=== PATIENT | female | born 1970 | race Caucasian/White ===

== ENCOUNTER 2020-12-26 07:16 | Outpatient (REF) | payer OTHER, SELFPAY ==
[2020-12-26 08:04] LABS: MANUAL DIFF FLAG NO
[2020-12-26 08:06] LABS: Basophils Absolute Auto 0.1 X10*3/uL (0.0-0.2); Basophils Percent Auto 1.1 % (0-2); Eosinophils Absolute Auto 0.4 X10*3/uL (0.0-0.4); Eosinophils Percent Auto 5.5 % (0-4); Hemoglobin 13.6 g/dl (12.0-16.0); Imm Gran Abs Auto 0.02 X10*3/uL (0.00-0.03); Imm Gran Pct Auto 0.3 % (0.0-0.4); Lymphocytes Percent Auto 26.3 % (20-40); Mean Corpuscular HGB Conc 33.2 g/dl (31.0-35.0); Mean Corpuscular Hemoglobin 29.2 pg (27.0-33.0); Mean Corpuscular Volume 88.2 fL (80-98); Mean Platelet Volume 9.5 fL (9.4-12.3); Monocytes Absolute Auto 0.5 X10*3/uL (0.1-1.2); Monocytes Percent Auto 7.1 % (2-11); Neutrophils Absolute Auto 4.5 X10*3/uL (2.0-8.3); Neutrophils Percent Auto 59.7 % (45-73); Platelet Count 390 X10*3/uL (160-400); Red Blood Count 4.65 X10*6/uL (4.20-5.50); Red Cell Distribution Width 13.2 % (11.0-16.0); White Blood Count 7.6 X10*3/uL (4.8-10.8)
[2020-12-26 08:59] LABS: Alanine Aminotransferase 7 U/L (0-31); Albumin Level 4.4 g/dL (3.5-5.0); Alkaline Phosphatase 87 U/L (39-117); Anion Gap 11 (12-20); Aspartate Amino Transferase 11 U/L (5-31); Bilirubin Total 0.5 mg/dL (0.0-1.0); Blood Urea Nitrogen 9 mg/dL (9-16); Calcium 9.1 mg/dL (8.4-10.2); Carbon Dioxide 28 mmol/L (22-29); Chloride 102 mmol/L (96-108); Cholesterol 217 mg/dL; Estimated Glomerular Filt Rate > 60; Glucose Fasting 142 mg/dL (60-99); HDL Cholesterol 48 mg/dL; LDL Cholesterol Calculated 146 mg/dl; Potassium 4.4 mmol/l (3.3-5.1); Sodium 137 mmol/L (135-145); Total Protein 7.5 g/dL (6.5-8.0); Triglycerides 119 mg/dL
[2020-12-26 09:22] LABS: TSH reflex Free T4 0.82 mIU/mL (0.32-4.0)
[2020-12-26 09:34] LABS: Estimated Average Glucose 126 mg/dL
== END 2020-12-26 07:17 | disposition home or self-care (01) ==
LOC: HO.LAB 07:16
PROVIDERS: PCP Nurse Practitioner Family; Visit Provider Nurse Practitioner Family
DX: Z00.00 Encounter for general adult medical examination without abnormal findings (principal)
CPT/HCPCS: 36415; 80053; 80061; 83036; 84443; 85025

== ENCOUNTER 2021-12-11 13:44 | Emergency (ER) | payer OTHER, SELFPAY ==
--- NOTE | ~2021-12-11 | XR_ITS ---
EXAMINATION: XR CHEST CLINICAL INFORMATION: Chest pain, SOB. COMPARISON: Chest 10/13/2019 TECHNIQUE: 2 views of the chest were obtained. FINDINGS: No significant abnormality is noted involving the heart, lungs, mediastinum, bony thorax or soft tissues. XR/XR chest 2V IMPRESSION: Unremarkable chest examination.
--- NOTE | ~2021-12-11 | CT_ITS ---
EXAMINATION: CT HEAD WITHOUT CONTRAST CLINICAL INFORMATION: New onset headache. COMPARISON: CT head dated from 10/13/2019. TECHNIQUE: Contiguous axial imaging was performed from the skull base to vertex without intravenous administration of contrast. This CT examination was performed using dose optimization techniques as appropriate, variously including the following: *Automated exposure control *Adjustment of mA and/or kV according to patient size (this includes techniques or standardized protocols for targeted exams where dose is matched to indication/reason for exam; i.e. extremities or head) *Use of iterative reconstruction technique DLP: 578 mGy-cm FINDINGS: There is no evidence of acute intracranial hemorrhage or edematous territorial infarction. There is no abnormal attenuation within the brain parenchyma. Kevin-white matter differentiation is preserved. The ventricles are normal in size and configuration. No evidence for obstructive hydrocephalus. No abnormal mass effect or midline shift. No extra-axial fluid collections. No acute soft tissue or osseous abnormalities. The mastoid air cells and paranasal sinuses are clear. CT/CT head/brain wo con IMPRESSION: No evidence of acute intracranial hemorrhage or edematous territorial infarction.
--- NOTE | 2021-12-11 14:08 | ECG_ITS ---
Test Reason : chest pain/difficulty breathing Blood Pressure : / mmHG Vent. Rate : 085 BPM Atrial Rate : 085 BPM P-R Int : 126 ms QRS Dur : 114 ms QT Int : 356 ms P-R-T Axes : 061 -11 -20 degrees QTc Int : 423 ms Normal sinus rhythm Incomplete right bundle branch block ST & T wave abnormality, consider anterolateral ischemia Abnormal ECG When compared with ECG of 15-DEC-2019 08:26, Inverted T waves have replaced nonspecific T wave abnormality in Lateral leads Referred By: Generic ED Physician Electronically Signed By:SAMY MIRAMONTES
[2021-12-11 14:16] VITALS: BP 108/73; PULSE 89; RESP 89; TEMP 36.1; O2SAT 98; BMI 29.8
[2021-12-11 14:57] LABS: MANUAL DIFF FLAG NO
[2021-12-11 14:58] LABS: Basophils Absolute Auto 0.1 X10*3/uL (0.0-0.2); Basophils Percent Auto 0.7 % (0-2); Eosinophils Absolute Auto 0.1 X10*3/uL (0.0-0.4); Eosinophils Percent Auto 0.8 % (0-4); Hematocrit 40.2 % (37.0-47.0); Hemoglobin 13.7 g/dl (12.0-16.0); Imm Gran Abs Auto 0.05 X10*3/uL (0.00-0.03); Imm Gran Pct Auto 0.4 % (0.0-0.4); Lymphocytes Absolute Auto 2.1 X10*3/uL (1.2-4.9); Lymphocytes Percent Auto 17.8 % (20-40); Mean Corpuscular HGB Conc 34.1 g/dl (31.0-35.0); Mean Corpuscular Hemoglobin 29.5 pg (27.0-33.0); Mean Corpuscular Volume 86.5 fL (80.0-98.0); Mean Platelet Volume 9.8 fL (9.4-12.3); Monocytes Absolute Auto 0.7 X10*3/uL (0.1-1.2); Monocytes Percent Auto 6.2 % (2-11); Neutrophils Absolute Auto 8.7 x10*3/uL (2.0-8.3); Neutrophils Percent Auto 74.1 % (45-73); Platelet Count 467 X10*3/uL (160-400); Red Blood Count 4.65 X10*6/uL (4.20-5.50); Red Cell Distribution Width 13.3 % (11.0-16.0); White Blood Count 11.7 X10*3/uL (4.8-10.8)
[2021-12-11 15:10] LABS: Anion Gap 11 (12-20); Blood Urea Nitrogen 8 mg/dL (9-16); Calcium 9.7 mg/dL (8.4-10.2); Carbon Dioxide 27 mmol/L (22-29); Chloride 105 mmol/L (96-108); Creatinine Clr Calc Pharmacy 74.3; Estimated Glomerular Filt Rate > 60; Glucose Random 139 mg/dL (60-115); Potassium 4.2 mmol/L (3.3-5.1); Sodium 139 mmol/L (135-145)
[2021-12-11 15:17] LABS: Troponin-I High Sensitivity < 3.5 ng/L (<3.5-17.0)
[2021-12-11 17:02] LABS: COVID-19 Test Negative (Negative)
--- NOTE | 2021-12-11 18:23 | ED_ITS ---
HPI - General Adult General Chief complaint: General Medical Stated complaint: chest pain SOB migraine Time Seen by Provider: 12/11/21 18:23 Source: patient Mode of arrival: ambulatory Limitations: no limitations History of Present Illness HPI narrative: Patient with history of anxiety with history of headaches and migraines in the past was doing good for last 10 years since last night been having right-sided headache with light sensitivity and nausea also complaining of chest pain and shortness of breath was very anxious occasional cough no malaise no loss of taste sensation no fever no neck pain Related Data Home Medications Medication Instructions Recorded Confirmed benztropine 1 mg tablet 1 mg PO BID 11/13/20 04/16/21 olanzapine 10 mg tablet (Zyprexa) 10 mg PO DAILY 11/13/20 04/16/21 olanzapine 15 mg tablet (Zyprexa) 15 mg PO QPM 11/13/20 04/16/21 trazodone 300 mg tablet 300 mg PO BEDTIME 11/13/20 04/16/21 valacyclovir 500 mg tablet 500 mg PO BEDTIME tab 11/13/20 04/16/21 (Valtrex) clonazepam 1 mg tablet 1 mg PO BID 04/16/21 04/16/21 Previous Rx's Medication Instructions Recorded cyclobenzaprine 10 mg tablet 10 mg PO BEDTIME 30 Days #30 tab 11/13/20 albuterol sulfate 90 mcg/actuation 1 inh INHALATION QID PRN 30 Days 12/15/20 aerosol inhaler (Ventolin HFA) #6.7 g omeprazole 20 mg capsule,delayed 20 mg PO DAILY 60 Days #60 cap 01/03/21 release acetaminophen 650 mg 650 mg PO Q12H PRN #30 tab 01/23/21 tablet,extended release (Mapap Arthritis Pain) nxdcinzdbj-ztuzkmmulnems-nrdowuas 1 cap PO Q6H PRN #20 cap 12/11/21 50 mg-300 mg-40 mg capsule (Fioricet) Allergies Allergy/AdvReac Type Severity Reaction Status Date / Time prochlorperazine Allergy Severe ANAPHYLAXIS Verified 04/16/21 12:10 [From Compazine] Sulfa (Sulfonamide Allergy Severe ANAPHYLAXIS Verified 04/16/21 12:10 Antibiotics) [Sulfa (Sulfonamides)] lithium [Macclenny] Allergy Intermediate DIZZINESS,Balance Verified 04/16/21 12:10 problems azithromycin [From Zithromax] Allergy Unknown gi upset Verified 04/16/21 12:10 lurasidone [From LATUDA] Allergy Unknown AUDITORY Verified 04/16/21 12:10 AND VISUAL HALLUCINATIONS, SUICIDAL From Paxil Allergy Severe DIFFICULTY Uncoded 08/16/20 14:50 BREATHING,TONGUE SWOLLEN From Prozac Allergy Intermediate PANIC Uncoded 08/16/20 14:50 ATTACK HAYFEVER Allergy Intermediate sinus Uncoded 08/16/20 14:50 congestion Review of Systems Review of Systems: Yes all other systems are reviewed and are negative [facility] Past Medical History Medical History Bipolar disorder Dyslipidemia Knee pain, bilateral Pre-diabetes Vitamin D deficiency Surgical History History of appendectomy History of bunionectomy History of cervical spinal surgery History of section History of cholecystectomy History of surgery History of tonsillectomy Family History Family History Father Diabetes Bipolar 1 disorder Paternal Grandfather Myocardial infarction Paternal Uncle Myocardial infarction Social History Social History Patient Tobacco Use Status: Never used Tobacco Smoked in Last 30 Days: No Use of substances other than those prescribed or required for medical reasons: Yes Substance Use Type: Marijuana Advance Directives: No Advance Directives Information Provided: No Patient : No Physical Exam Vital Signs: Vital Signs: Last Vital Signs Temp 97.7 F 12/11/21 19:16 Pulse 73 12/11/21 19:57 Resp 16 12/11/21 19:57 BP 112/82 12/11/21 19:57 Pulse Ox 96 12/11/21 19:16 BMI result Body Mass Index 29.8 Appearance: Alert. Oriented X3. No acute distress. Eyes: PERRLA, No Nystagmus ENT: Pharynx normal. Oral Mucosa moist ,no temporal artery tenderness no carotid bruit Neck: Normal inspection. Neck supple. CVS: Normal heart rate and rhythm. Pulses normal. Respiratory: No respiratory distress. Equal air entry bilateral, no wheezing/rales/rhonchi Abdomen: Soft and nontender. Bowel sounds are present, no mass palpable, Skin: Skin warm and dry. Normal skin color. Normal skin turgor. Extremities: No lower extremity edema. No calf tenderness Neuro: Oriented X 3. No motor deficit. No sensory deficit.No cerebellar signs , cranial nerves II-XII intact Medical Decision Making MDM Narrative Medical decision making narrative: Patient headache with anxiety COVID negative sed rate not significantly high, head CT is negative discharge patient home Lab Data Lab results reviewed: Yes I reviewed the patient's lab results. Result diagrams: 12/11/21 14:52 12/11/21 14:51 Labs: Lab Results 12/11/21 12/11/21 12/11/21 Range/Units 14:51 14:51 14:52 WBC 11.7 H (4.8-10.8) X10*3/uL RBC 4.65 (4.20-5.50) X10*6/uL Hgb 13.7 (12.0-16.0) g/dl Hct 40.2 (37.0-47.0) % MCV 86.5 (80.0-98.0) fL MCH 29.5 (27.0-33.0) pg MCHC 34.1 (31.0-35.0) g/dl RDW 13.3 (11.0-16.0) % Plt Count 467 H (160-400) X10*3/uL MPV 9.8 (9.4-12.3) fL Immature Gran % (Auto) 0.4 (0.0-0.4) % Neut % (Auto) 74.1 H (45-73) % Lymph % (Auto) 17.8 L (20-40) % [place] % (Auto) 6.2 (2-11) % Eos % (Auto) 0.8 (0-4) % Baso % (Auto) 0.7 (0-2) % Lymph # (Auto) 2.1 (1.2-4.9) X10*3/uL [place] # (Auto) 0.7 (0.1-1.2) X10*3/uL Eos # (Auto) 0.1 (0.0-0.4) X10*3/uL Baso # (Auto) 0.1 (0.0-0.2) X10*3/uL Abs Immat Gran (auto) 0.05 H (0.00-0.03) X10*3/uL Absolute Neuts (auto) 8.7 H (2.0-8.3) x10*3/uL Absolute Nucleated RBC 0.000 (0.0-0.012) X10*3/uL Nucleated RBC % (auto) 0.0 (0.0-0.2) /100WBC ESR (0-20) MM/HR Sodium 139 (135-145) mmol/L Potassium 4.2 (3.3-5.1) mmol/L Chloride 105 (96-108) mmol/L Carbon Dioxide 27 (22-29) mmol/L Anion Gap 11 L (12-20) BUN 8 L (9-16) mg/dL Creatinine 0.82 (0.5-1.4) mg/dL Estim Creat Clear Calc 74.3 Estimated GFR > 60 Random Glucose 139 H (60-115) mg/dL Calcium 9.7 D (8.4-10.2) mg/dL Troponin I High Sens < 3.5 (<3.5-17.0) ng/L COVID-19 (JOSE CRUZ) (Negative) COVID-19 Clin Com 12/11/21 12/11/21 Range/Units 14:52 16:15 WBC (4.8-10.8) X10*3/uL RBC (4.20-5.50) X10*6/uL Hgb (12.0-16.0) g/dl Hct (37.0-47.0) % MCV (80.0-98.0) fL MCH (27.0-33.0) pg MCHC (31.0-35.0) g/dl RDW (11.0-16.0) % Plt Count (160-400) X10*3/uL MPV (9.4-12.3) fL Immature Gran % (Auto) (0.0-0.4) % Neut % (Auto) (45-73) % Lymph % (Auto) (20-40) % [place] % (Auto) (2-11) % Eos % (Auto) (0-4) % Baso % (Auto) (0-2) % Lymph # (Auto) (1.2-4.9) X10*3/uL [place] # (Auto) (0.1-1.2) X10*3/uL Eos # (Auto) (0.0-0.4) X10*3/uL Baso # (Auto) (0.0-0.2) X10*3/uL Abs Immat Gran (auto) (0.00-0.03) X10*3/uL Absolute Neuts (auto) (2.0-8.3) x10*3/uL Absolute Nucleated RBC (0.0-0.012) X10*3/uL Nucleated RBC % (auto) (0.0-0.2) /100WBC ESR 22 H (0-20) MM/HR Sodium (135-145) mmol/L Potassium (3.3-5.1) mmol/L Chloride (96-108) mmol/L Carbon Dioxide (22-29) mmol/L Anion Gap (12-20) BUN (9-16) mg/dL Creatinine (0.5-1.4) mg/dL Estim Creat Clear Calc Estimated GFR Random Glucose (60-115) mg/dL Calcium (8.4-10.2) mg/dL Troponin I High Sens (<3.5-17.0) ng/L COVID-19 (JOSE CRUZ) Negative (Negative) COVID-19 Clin Com See Note Discharge Plan Discharge Clinical Impression: Headache, migraine Patient Disposition: Home, Self-Care Instructions: Migraine Headache (ED) Additional Instructions: Rest at home Fioricet for headache as prescribed Follow-up with PCP if not better Prescriptions: New jkgshjtgdc-vbdtsaibepmih-vdax [Fioricet] 50-300-40 mg capsule 1 cap PO Q6H PRN (Reason: headache) Qty: 20 RF: 0 No Action albuterol sulfate [Ventolin HFA] 90 mcg/actuation HFA aerosol inhaler 1 inh inhalation QID PRN (Reason: shortness of breath or wheezing) 30 Days Qty: 6.7 RF: 0 omeprazole 20 mg capsule,delayed release(DR/EC) 20 mg PO DAILY 60 Days Qty: 60 RF: 0 acetaminophen [Mapap Arthritis Pain] 650 mg tablet extended release 650 mg PO Q12H PRN (Reason: for pain) Qty: 30 RF: 0 clonazepam 1 mg tablet 1 mg PO BID RF: 0 olanzapine [Zyprexa] 10 mg tablet 10 mg PO DAILY RF: 0 benztropine 1 mg tablet 1 mg PO BID RF: 0 olanzapine [Zyprexa] 15 mg tablet 15 mg PO QPM RF: 0 trazodone 300 mg tablet 300 mg PO BEDTIME RF: 0 valacyclovir [Valtrex] 500 mg tablet 500 mg PO BEDTIME RF: 0 cyclobenzaprine 10 mg tablet 10 mg PO BEDTIME 30 Days Qty: 30 RF: 0 Interventions: ED Discharge Assessment Last Done: 12/11/21 20:05 Discharge Date/Time: 12/11/21 20:05
[2021-12-11 18:32] VITALS: BP 121/73; PULSE 89; RESP 24; TEMP 36.6
[2021-12-11] MEDS: Morphine Sulfate 4 MG/ML CARTRIDGE IVPUSH (18:46)
[2021-12-11] MEDS: ondansetron HCL 4 MG/2 ML VIAL IVPUSH (18:47)
[2021-12-11 19:16] VITALS: BP 112/82; PULSE 75; RESP 16; TEMP 36.5; O2SAT 96
[2021-12-11 19:40] LABS: Erythrocyte Sedimentation Rate 22 MM/HR (0-20)
[2021-12-11 19:57] VITALS: BP 112/82; PULSE 73; RESP 16
--- NOTE | 2021-12-11 20:06 | PC.NURSE ---
pt is alert and oriented x3 no distress, steady giat.
== END 2021-12-11 20:05 | disposition home or self-care (01) ==
PROVIDERS: Emergency Provider Internal Medicine; PCP Internal Medicine
DX: G43.909 Migraine, unspecified, not intractable, without status migrainosus (principal); Z20.822 Contact with and (suspected) exposure to COVID-19; F41.9 Anxiety disorder, unspecified; E78.5 Hyperlipidemia, unspecified; R73.03 Prediabetes; F12.90 Cannabis use, unspecified, uncomplicated
CPT/HCPCS: 36415; 70450; 71046; 80048; 84484; 85025; 85652; 87635; 93005; 96374; 96375; 99284; J2270; J2405

== ENCOUNTER 2022-04-18 06:50 | Outpatient (REF) | payer OTHER, SELFPAY ==
[2022-04-18 07:13] LABS: MANUAL DIFF FLAG NO
[2022-04-18 07:43] LABS: Basophils Absolute Auto 0.1 X10*3/uL (0.0-0.2); Basophils Percent Auto 0.7 % (0-2); Eosinophils Absolute Auto 0.6 X10*3/uL (0.0-0.4); Eosinophils Percent Auto 5.7 % (0-4); Hemoglobin 12.7 g/dl (12.0-16.0); Imm Gran Abs Auto 0.05 X10*3/uL (0.00-0.03); Imm Gran Pct Auto 0.5 % (0.0-0.4); Lymphocytes Absolute Auto 1.9 X10*3/uL (1.2-4.9); Lymphocytes Percent Auto 19.7 % (20-40); Mean Corpuscular HGB Conc 33.4 g/dl (31.0-35.0); Mean Corpuscular Hemoglobin 29.1 pg (27.0-33.0); Mean Platelet Volume 10.3 fL (9.4-12.3); Monocytes Absolute Auto 0.7 X10*3/uL (0.1-1.2); Monocytes Percent Auto 7.3 % (2-11); Neutrophils Absolute Auto 6.4 x10*3/uL (2.0-8.3); Neutrophils Percent Auto 66.1 % (45-73); Platelet Count 405 X10*3/uL (160-400); Red Blood Count 4.37 X10*6/uL (4.20-5.50); Red Cell Distribution Width 13.6 % (11.0-16.0); White Blood Count 9.7 X10*3/uL (4.8-10.8)
[2022-04-18 07:55] LABS: Estimated Average Glucose 137 mg/dL; Hemoglobin A1c % 6.4 %
[2022-04-18 08:02] LABS: Anion Gap 12 (12-20); Blood Urea Nitrogen 8 mg/dL (9-16); Carbon Dioxide 29 mmol/L (22-29); Chloride 103 mmol/L (96-108); Cholesterol 183 mg/dL; Estimated Glomerular Filt Rate > 60; Glucose Fasting 153 mg/dL (60-99); HDL Cholesterol 40 mg/dL; LDL Cholesterol Calculated 107 mg/dl; Potassium 4.7 mmol/L (3.3-5.1); Sodium 139 mmol/L (135-145); Triglycerides 182 mg/dL
[2022-04-18 08:24] LABS: Free T4 (Free Thyroxine) 0.84 ng/dL (0.71-1.85); Thyroid Stimulating Hormone 1.39 uIU/mL (0.32-4.0)
== END 2022-04-18 06:51 | disposition home or self-care (01) ==
LOC: HO.LAB 06:50
PROVIDERS: PCP Internal Medicine; Visit Provider Clinical Nurse Specialist Psychiatric/Mental Health, Child & Adolescent
DX: F31.31 Bipolar disorder, current episode depressed, mild (principal); Z79.899 Other long term (current) drug therapy
CPT/HCPCS: 36415; 80048; 80061; 83036; 84439; 84443; 85025

== ENCOUNTER 2022-10-22 10:55 | Outpatient (REF) | payer OTHER, SELFPAY ==
--- NOTE | ~2022-10-22 | MM_ITS ---
EXAMINATION: MM SCREENING DIGITAL BREAST TOMOSYNTHESIS, BILATERAL CLINICAL INFORMATION: Screening. Asymptomatic. The lifetime risk of breast cancer based on the Tyrer-Cuzick Model is 6%. COMPARISON: Outside mammography: 10/02/2014, 08/09/2013, 02/13/2012 ([facility]) TECHNIQUE: Digital breast tomosynthesis is performed in both the craniocaudal and mediolateral oblique views along with computer-aided detection (CAD). Synthesized 2D images are generated from the tomosynthesis. FINDINGS: The breasts are heterogeneously dense, which may obscure small masses (ACR BI-RADS breast composition Category c). Breast tissue composition borders on average fibroglandular. Left breast shows no significant mass or architectural abnormality. No abnormal calcifications either breast. The axilla and skin contours are unremarkable. Right breast has a oval focal nodular asymmetry anterior lower inner quadrant approximately 5 x 8 mm, new finding from remote outside mammography exams. Patient will be recalled for additional imaging. MM/MM tomosynthesis screening BI IMPRESSION: Right: -Oval focal nodular asymmetry anterior lower inner quadrant under 1 cm. Left: -No mammographic evidence of malignancy. ASSESSMENT: BI-RADS 0: Incomplete - Need Additional Imaging Evaluation RECOMMENDATION: 1. Additional views of the right breast (spot CC, spot ML). 2. Targeted ultrasound if warranted after review of the additional views. 3. Radiology department staff will contact the patient for additional imaging. This patient's information was entered into a reminder system with a target due date for their next mammogram.
== END 2022-10-22 10:56 | disposition home or self-care (01) ==
LOC: HO.MAMMO 10:55
PROVIDERS: PCP Internal Medicine; Visit Provider Internal Medicine
DX: Z12.31 Encounter for screening mammogram for malignant neoplasm of breast (principal)
CPT/HCPCS: 77063; 77067

== ENCOUNTER 2022-11-10 12:31 | Outpatient (REF) | payer OTHER, SELFPAY ==
--- NOTE | ~2022-11-10 | US_ITS ---
EXAMINATION: MM DIAGNOSTIC DIGITAL BREAST TOMOSYNTHESIS, RIGHT US DIAGNOSTIC ULTRASOUND BREAST, RIGHT CLINICAL INFORMATION: Recall from screening for focal nodular asymmetric density anterior lower inner right breast, new from prior remote outside mammography 2013. COMPARISON: Mammography: 10/22/2022 and outside mammography 10/02/2014 ([facility]). TECHNIQUE: Digital breast tomosynthesis is performed. 2D images are generated from the tomosynthesis. The following views are obtained: Spot CC, spot ML x2. Ultrasound right breast is targeted to the anterior medial breast. Grayscale imaging and color Doppler are performed without and with harmonics. FINDINGS: The breasts are heterogeneously dense, which may obscure small masses (ACR BI-RADS breast composition Category c). Breast tissue composition borders on average fibroglandular. The nodule anterior medial breast appears smooth macrolobulated. No architectural abnormality. Finding is new from remote outside mammography 2013. Ultrasound demonstrates grouped microcysts in the area of interest 3:00 position 2 cm from nipple with overall size approximately 0.6 x 0.5 cm. There is no solid mass or architectural abnormality. Results are discussed with the patient at time of visit. The finding on mammography likely corresponds to benign grouped microcysts on ultrasound. As a precaution, short interval follow-up right mammography and ultrasound are recommended. US/US breast RT limited IMPRESSION: -Probable benign grouped microcysts anterior medial right breast corresponding to the macrolobulated nodule on mammography. ASSESSMENT: BI-RADS 3: Probably Benign RECOMMENDATION: Diagnostic right mammography and right breast ultrasound in 6 months. This patient's information was entered into a reminder system with a target due date for their next mammogram.
== END 2022-11-10 12:32 | disposition home or self-care (01) ==
LOC: HO.MAMMO 12:31
PROVIDERS: PCP Internal Medicine; Visit Provider Internal Medicine
DX: N64.89 Other specified disorders of breast (principal)
CPT/HCPCS: 76642; 77061; 77065

== ENCOUNTER 2022-12-30 10:01 | Outpatient (REF) | payer OTHER, SELFPAY ==
[2023-01-01 00:39] LABS: HPV mRNA E6/E7 rflx Not Detected (Not Detected)
== END 2022-12-30 10:02 | disposition home or self-care (01) ==
LOC: HO.LNP 10:01
PROVIDERS: PCP Internal Medicine; Visit Provider Advanced Practice Midwife
DX: Z01.419 Encounter for gynecological examination (general) (routine) without abnormal findings (principal); Z11.51 Encounter for screening for human papillomavirus (HPV)
CPT/HCPCS: 87624; 88142

== ENCOUNTER 2023-03-13 12:10 | Outpatient (REF) | payer OTHER, SELFPAY ==
--- NOTE | ~2023-03-13 | XR_ITS ---
EXAMINATION: XR FOOT, LEFT CLINICAL INFORMATION: Pain COMPARISON: None available. TECHNIQUE: AP, lateral, and oblique views of the left foot. FINDINGS: No acute fracture or dislocation. Joint spaces are maintained. Soft tissues are unremarkable. No joint effusion. Plantar calcaneal spurring. XR/XR foot LT min 3V IMPRESSION: Plantar calcaneal spurring.
== END 2023-03-13 12:11 | disposition home or self-care (01) ==
LOC: HO.HMGCX 12:10
PROVIDERS: PCP Internal Medicine; Visit Provider Internal Medicine
DX: M79.672 Pain in left foot (principal)
CPT/HCPCS: 73630

== ENCOUNTER → 2023-05-05 12:51 | Outpatient (BNVA) | payer OTHER, SELFPAY | PROVIDERS: PCP Internal Medicine; Visit Provider Nurse Practitioner Family | DX: G47.19 Other hypersomnia (principal); R06.83 Snoring; R06.81 Apnea, not elsewhere classified; M62.838 Other muscle spasm | CPT/HCPCS: 99202 ==

== ENCOUNTER 2023-05-26 10:43 | Outpatient (REF) | payer OTHER, SELFPAY ==
--- NOTE | ~2023-05-26 | MM_ITS ---
EXAMINATION: MM DIAGNOSTIC DIGITAL BREAST TOMOSYNTHESIS, RIGHT CLINICAL INFORMATION: Probable benign focal nodular asymmetry anterior lower inner right breast likely related to benign grouped microcysts on prior targeted ultrasound. Short interval six-month follow-up. TC score 6%. COMPARISON: Mammography: 11/10/2022, 10/22/2022 (BI-RADS 0), outside mammography 10/02/2014 ([facility]), right breast ultrasound 11/10/2022. TECHNIQUE: Digital breast tomosynthesis is performed in both the craniocaudal and mediolateral oblique views along with computer-aided detection (CAD). Synthesized 2D images are generated from the tomosynthesis. FINDINGS: The breasts are heterogeneously dense, which may obscure small masses (ACR BI-RADS breast composition Category c). Parenchymal pattern is similar to the prior exam. The nodularity for follow-up is stable to borderline decreased. There is no architectural abnormality. No interval developing density or significant mass or architectural abnormality. No abnormal calcifications. The axilla is unremarkable. Results are provided to the patient at time of visit by the technologist. The targeted right breast ultrasound for follow-up to be performed at another upcoming appointment. MM/MM tomosynthesis diagnostic RT IMPRESSION: -No significant changes from prior exam. -Nodule for follow-up is stable to borderline decreased. ASSESSMENT: BI-RADS 0: Incomplete - Need Additional Imaging Evaluation RECOMMENDATION: Short interval follow-up targeted right breast ultrasound (scheduled at another upcoming appointment). This patient's information was entered into a reminder system with a target due date for their next mammogram.
== END 2023-05-26 10:44 | disposition home or self-care (01) ==
LOC: HO.MAMMO 10:43
PROVIDERS: PCP Internal Medicine; Visit Provider Internal Medicine
DX: N64.89 Other specified disorders of breast (principal)
CPT/HCPCS: 77061; 77065

== ENCOUNTER 2023-05-26 11:35 | Outpatient (REF) | payer OTHER, SELFPAY | END 2023-05-26 11:36 | disposition home or self-care (01) | LOC: HO.XRAY 11:35 | PROVIDERS: PCP Internal Medicine; Visit Provider Internal Medicine | DX: Z13.89 Encounter for screening for other disorder (principal) ==

== ENCOUNTER 2023-06-09 09:22 | Outpatient (REF) | payer OTHER, SELFPAY ==
--- NOTE | ~2023-06-09 | XR_ITS ---
EXAMINATION: XR FOOT, LEFT CLINICAL INFORMATION: Pain COMPARISON: 03/13/2023 TECHNIQUE: AP, lateral, and oblique views of the left foot. FINDINGS: Bones are normal anatomic alignment with no acute fracture or spondylolisthesis. Small calcaneal heel spur is again seen at the attachment point of the plantar aponeurosis. No acute bony destructive lesions or periosteal reaction. Soft tissue unremarkable. XR/XR foot LT min 3V IMPRESSION: No acute bony abnormality. Small calcaneal heel spur.
== END 2023-06-09 09:23 | disposition home or self-care (01) ==
LOC: HO.XRAY 09:22
PROVIDERS: PCP Internal Medicine; Visit Provider Internal Medicine
DX: M79.672 Pain in left foot (principal)
CPT/HCPCS: 73630

== ENCOUNTER → 2023-06-11 12:30 | Outpatient (REF) | payer OTHER, SELFPAY | LOC: HO.SL 12:30 | PROVIDERS: PCP Internal Medicine; Visit Provider Nurse Practitioner Family | DX: G47.33 Obstructive sleep apnea (adult) (pediatric) (principal); R06.83 Snoring; G47.19 Other hypersomnia | CPT/HCPCS: 95806 ==

== ENCOUNTER → 2023-06-11 13:05 | Outpatient (BNV) | payer OTHER, SELFPAY | PROVIDERS: PCP Internal Medicine; Visit Provider Psychiatry & Neurology Neurology | DX: G47.33 Obstructive sleep apnea (adult) (pediatric) (principal) | CPT/HCPCS: 95806 ==

== ENCOUNTER → 2023-07-14 19:30 | Outpatient (REF) | payer OTHER, SELFPAY | LOC: HO.SL 19:30 | PROVIDERS: PCP Internal Medicine; Visit Provider Nurse Practitioner Family | DX: G47.33 Obstructive sleep apnea (adult) (pediatric) (principal) | CPT/HCPCS: 95811 ==

== ENCOUNTER → 2023-07-14 21:48 | Outpatient (BNV) | payer OTHER, SELFPAY | PROVIDERS: PCP Internal Medicine; Visit Provider Psychiatry & Neurology Neurology | DX: G47.33 Obstructive sleep apnea (adult) (pediatric) (principal) | CPT/HCPCS: 95811 ==

== ENCOUNTER 2023-07-20 13:51 | Outpatient (REF) | payer OTHER, SELFPAY ==
--- NOTE | ~2023-07-20 | US_ITS ---
EXAMINATION: US DIAGNOSTIC ULTRASOUND BREAST, RIGHT CLINICAL INFORMATION: Patient returning for 6 month follow-up to mammography finding 05/26/2023, of complicated cyst right breast 3:00 axis, 2 cm from the nipple. COMPARISON: Right breast ultrasound 11/10/2022. Mammography 05/26/2023, 11/10/2022, and dating back to 2012. TECHNIQUE: Ultrasound of the right breast was performed in the 3:00 axis with real-time kinney scale imaging and color Doppler. FINDINGS: There is a stable complicated cyst in the right breast 3:00 axis, 2 cm from the nipple, measuring approximately 5 x 5 x 5 mm, unchanged in overall morphology and size. This finding remains probably benign. No additional abnormality is detected. Results were discussed with the patient at time of visit. US/US breast RT limited mamm only IMPRESSION: Stable complicated cyst in the 3:00 axis of the right breast, which remains probably benign. Recommend six-month interval follow-up targeted right breast ultrasound to ensure stability. Goal is to establish a two-year stability. ASSESSMENT: BI-RADS 3: Probably Benign RECOMMENDATION: Diagnostic right ultrasound in 6 months. This patient's information was entered into a reminder system with a target due date for their next mammogram.
== END 2023-07-20 13:52 | disposition home or self-care (01) ==
LOC: HO.MAMMO 13:51
PROVIDERS: PCP Internal Medicine; Visit Provider Internal Medicine
DX: N63.15 Unspecified lump in the right breast, overlapping quadrants (principal)
CPT/HCPCS: 76642

== ENCOUNTER → 2023-07-20 14:00 | Outpatient (BNV) | payer OTHER, SELFPAY | PROVIDERS: PCP Internal Medicine; Visit Provider Radiology Diagnostic Radiology | DX: N60.01 Solitary cyst of right breast (principal) | CPT/HCPCS: 76642 ==

== ENCOUNTER 2023-09-08 08:53 | Outpatient (AMB) | payer OTHER, SELFPAY ==
[2023-09-08 09:06] VITALS: BP 106/72; PULSE 65; O2SAT 97; BMI 31.9
--- NOTE | 2023-09-08 09:06 | A.OFFVIS_ITS ---
Intake Vital Signs 09/08/23 09:06 Height 5 ft 1 in Weight 169 lb BMI 31.9 BP 106/72 Blood Pressure Location Lt brachial Position Sitting Pulse 65 Pulse Source Pulse Oximeter Pulse Oximetry (%) 97 Oxygen Delivery Method Room Air Intake Visit Reasons: 2 mnts f/u for sleep-Confirmed Intake Note: Patient presents for 2 month follow up. Patient states no concerns. Allergies prochlorperazine [From Compazine] Allergy (Severe, Verified 09/08/23 09:08) ANAPHYLAXIS Sulfa (Sulfonamide Antibiotics) [Sulfa (Sulfonamides)] Allergy (Severe, Verified 09/08/23 09:08) ANAPHYLAXIS lithium [[place]] Allergy (Intermediate, Verified 09/08/23 09:08) DIZZINESS,Balance problems azithromycin [From Zithromax] Allergy (Unknown, Verified 09/08/23 09:08) gi upset lurasidone [From LATUDA] Allergy (Unknown, Verified 09/08/23 09:08) AUDITORY AND VISUAL HALLUCINATIONS, SUICIDAL From Paxil Allergy (Severe, Uncoded 09/08/23 09:08) DIFFICULTY BREATHING,TONGUE SWOLLEN From Prozac Allergy (Intermediate, Uncoded 09/08/23 09:08) PANIC ATTACK HAYFEVER Allergy (Intermediate, Uncoded 09/08/23 09:08) sinus congestion HPI HPI Comments History of Present Illness Details 53 y/o female patient presents for follo w up of sleep study. The home sleep study result was significant for a severe degree of sleep apnea. The AHI was 47/hr and oxygen kyler was 77%. Pt underwent titration study and started CPAP at [id number]. Pt reports she changed to medium nasal cushion and she feels better with it. She sleeps better, 5-6 hrs sleep. She feels more awake has energy during daytime. She also cut down soda intake. The CPAP compliance and therapy response (08/09/23-09/07/23) reviewed. She is on CPAP at [id number]. The usage days 87% and the average usage hours 4 hrs 30 min. The AHI was 7.5/hr. [facility] Medical History (Updated 06/18/23 @ 15:13 by Sintia Macario CNP) Calcaneal spur of left foot Pain of left heel Witnessed apneic spells Loud snoring Excessive daytime sleepiness Dyslipidemia Vitamin D deficiency Bipolar disorder Pre-diabetes Knee pain, bilateral Surgical History History of surgery History of cervical spinal surgery History of cholecystectomy History of tonsillectomy History of bunionectomy History of appendectomy History of section Family History Father Diabetes Bipolar 1 disorder Paternal Grandfather Myocardial infarction Substance use disorder Paternal Uncle Myocardial infarction Mental health disorder Paternal Grandmother Substance use disorder Maternal Uncle Substance use disorder Paternal Aunt Mental health disorder Social History Housing: Condominium Patient Tobacco Use Status: Never used Tobacco e-Cigarette/Vaping Use: Never Used Substance Use Type: Marijuana service: No Current occupational status: disabled Cognitive needs: No Hearing needs: No Vision needs: Yes Female Reproductive History Menstrual Age of Menarche: 17 Review of Systems Const All systems reviewed & are unremarkable except as noted in HPI and below ENT Reports Normal hearing present Neuro Reports Normal hearing present Physical Exam Vital Signs: Last Vital Signs Pulse 65 09/08/23 09:06 BP 106/72 09/08/23 09:06 Pulse Ox 97 09/08/23 09:06 Oxygen Delivery Method Room Air 09/08/23 09:06 BMI result Body Mass Index 31.9 Const General: cooperative Nutritional Appearance: obese Orientation/consciousness: patient oriented x3 Neck Neck: Yes full ROM and Yes supple Resp Effort & Inspection: normal respiratory effort and able to speak in complete sentences Neuro General: patient oriented x3, gait normal and moves all extremities Cranial nerves: Yes Normal facial strength present, Yes Midline tongue present, Yes Symmetric palate elevation present, Yes Normal hearing present, Yes Ability to bilaterally rotate head present and Yes Ability to bilaterally elevate shoulders present Cognition (Neuro): normal cognition Gait exam (Neuro): Normal gait present Motor exam (neuro): 5/5 motor strength present throughout, Pronator motor function not present and no tremor noted Psych Appearance: grossly normal Mental Status: mental status grossly normal Speech and movement: Normal speech and movement present Affect: normal affect Attitude: cooperative Assessment & Plan Assessment & Plan (1) Sleep apnea: Comment: Severe degree of sleep apnea. The AHI was 47/hr and oxygen kyler was 77% Code(s): G47.30 - Sleep apnea, unspecified Plan Continue to use CPAP at [id number] as patient experiences good clinical effects, better quality sleep and daytime sleepiness has improved. Continue to take magnesium qHS and practice good sleep hygiene. Wt reduction advised. Coding Level of Care Code Est Pt Level 3 (06323) Diagnoses Sleep apnea G47.30
== END 2023-09-08 09:33 | disposition home or self-care (01) ==
PROVIDERS: PCP Internal Medicine; Visit Provider Nurse Practitioner Family
DX: G47.30 Sleep apnea, unspecified (principal)
CPT/HCPCS: 99213

== ENCOUNTER → 2023-09-08 08:53 | Outpatient (BNVA) | payer OTHER, SELFPAY | PROVIDERS: PCP Internal Medicine; Visit Provider Nurse Practitioner Family | DX: G47.30 Sleep apnea, unspecified (principal) | CPT/HCPCS: 99212 ==

== ENCOUNTER 2024-02-18 09:53 | Outpatient (AMB) | payer OTHER, SELFPAY ==
--- NOTE | 2024-02-18 10:20 | MHC.PC.OV ---
Vital Signs 02/18/24 10:26 Height 5 ft 1 in Weight 161 lb BMI 30.4 BP 92/60 Blood Pressure Location Lt brachial Position Sitting Pulse 98 Pulse Source Pulse Oximeter Pulse Oximetry (%) 97 Oxygen Delivery Method Room Air Intake Visit Reasons: Back & neck pain, needs xrays Intake Note: Pt is here today c/o lower back and and neck pain: Pt states she had neck surgery 30 yrs ago but recently her neck and back been botherin her Allergies prochlorperazine [From Compazine] Allergy (Severe, Verified 02/18/24 10:50) ANAPHYLAXIS Sulfa (Sulfonamide Antibiotics) [Sulfa (Sulfonamides)] Allergy (Severe, Verified 02/18/24 10:50) ANAPHYLAXIS lithium [[place]] Allergy (Intermediate, Verified 02/18/24 10:50) DIZZINESS,Balance problems azithromycin [From Zithromax] Allergy (Unknown, Verified 02/18/24 10:50) gi upset lurasidone [From LATUDA] Allergy (Unknown, Verified 02/18/24 10:50) AUDITORY AND VISUAL HALLUCINATIONS, SUICIDAL From Paxil Allergy (Severe, Uncoded 02/18/24 10:50) DIFFICULTY BREATHING,TONGUE SWOLLEN From Prozac Allergy (Intermediate, Uncoded 02/18/24 10:50) PANIC ATTACK HAYFEVER Allergy (Intermediate, Uncoded 02/18/24 10:50) sinus congestion Medication List - Last Reconciled 02/18/24 by Hannah Vidal MD albuterol sulfate 90 mcg/actuation (Ventolin HFA) 1 inh inhalation QID PRN 30 days clonazepam 1 mg PO BID olanzapine (Zyprexa) 10 mg PO DAILY olanzapine (Zyprexa) 15 mg PO QPM trazodone 300 mg PO PRN valacyclovir (Valtrex) 500 mg PO DAILY 90 days Tobacco use date assessed: 02/18/24 Dental Screening Dental Screen Date: 02/18/24 Did you have a dental visit in the last 12 months?: Yes Did you have a dental problem in the last 6 months where you did not have access to dental care?: No Was dental information given to patient?: Patient has dentist HPI Back & neck pain, needs xrays HPI Details 53-year-old lady here today complaining of lower back and and neck pain. She had cervical spine surgery done in [place] approximately 25-30 years ago , seen by Dr Jack. Was doing well until 6 months ago, when she fell down the stairs approximately 12 steps, and started experiencing pain in her posterior neck with radiation down right arm, and tingling in right finger, and lower back radiating to both hips for the last 4 months. Denies any urinary or stool incontinence, but does get intermittent episodes of tingling and pain numbness in right upper extremity and both [facility] Medical History (Updated 02/18/24 @ 10:59 by Hannah Vidal MD) Lumbago Calcaneal spur of left foot Pain of left heel Witnessed apneic spells Loud snoring Excessive daytime sleepiness Dyslipidemia Vitamin D deficiency Bipolar disorder Pre-diabetes Knee pain, bilateral Surgical History (Updated 02/18/24 @ 10:59 by Hannah Vidal MD) History of surgery History of cervical spinal surgery History of cholecystectomy History of tonsillectomy History of bunionectomy History of appendectomy History of section Family History Father Diabetes Bipolar 1 disorder Paternal Grandfather Myocardial infarction Substance use disorder Paternal Uncle Myocardial infarction Mental health disorder Paternal Grandmother Substance use disorder Maternal Uncle Substance use disorder Paternal Aunt Mental health disorder Social History Housing: Condominium Patient Tobacco Use Status: Former Tobacco user e-Cigarette/Vaping Use: Never Used Substance Use Type: Marijuana service: No Current occupational status: disabled Cognitive needs: No Hearing needs: No Vision needs: Yes Female Reproductive History Menstrual Age of Menarche: 17 Questionnaire PHQ-9 Over the last 2 weeks, how often have you been bothered by any of the following problems? 1. Little interest or pleasure in doing things: not at all 2. Feeling down, depressed, or hopeless: not at all 3. Trouble falling or staying asleep, or sleeping too much: several days 4. Feeling tired or having little energy: several days 5. Poor appetite or overeating: not at all 6. Feeling bad about yourself - or that you are a failure or have let yourself or your family down: not at all 7. Trouble concentrating on things, such as reading the newspaper or watching television: not at all 8. Moving or speaking so slowly that other people could have noticed. Or the opposite - being so fidgety or restless that you have been moving around a lot more than usual: not at all 9. Thoughts that you would be better off or of hurting yourself in some way: not at all Total score: 2 Depression Screening Interpretation: Negative Depression Screening Done: Yes 69386 - PHQ-9 Billing: Yes Source: Developed by Drs. Dane Renner, Romina Dumont, Hudson Flower and colleagues, with an educational isidro from [employer]. Thrive Questionnaire Date Thrive assessed: 02/18/24 I am a: Patient What is your living situation today?: I have a steady place to live Within the past 12 months, did the food you bought not last and you didn't have the money to get more?: Never true Within the past 12 months, did you worry whether your food would run out before you got money to buy more?: Never true Do you have trouble paying for medicines?: No Do you have trouble getting transportation to medical appointments?: No Do you have trouble paying your heating and electricity bill?: No Do you have trouble taking care of your child, family member or friend?: No Do you have trouble with day-to-day activities such as bathing, preparing meals, shopping, managing finances, etc.?: No Are you currently unemployed and looking for a job?: No Are you interested in more education?: No THRIVE Score: 0 AUDIT C Alcohol Use Questionnaire (AUDIT-C) 1. How often do you have a drink containing alcohol?: Never Total Score: 0 MELA-7 AMB Questionnaire MELA-7 Date MELA - 7 assessed: 02/18/24 Feeling nervous, anxious, or on edge: 1 = Several days Not being able to stop or control worryin = Several days Worrying too much about different things: 1 = Several days Trouble relaxin = Not at all Being so restless that it is hard to sit still: 0 = Not at all Becoming easily annoyed or irritable: 1 = Several days Feeling afraid as if something awful might happen: 0 = Not at all Total MELA-7 score (0-4 normal; 5-9 mild; 10-14 moderate; 15-21 severe): 4 Source: Developed by Drs. Dane Renner, Romina Dumont, Hudson Flower and colleagues, with an educational isidro from [employer]. MELA-7 Assessment Billing MELA-7 Assessment Tool: MELA-7 Assessment 84098 Review of Systems Const Reports as per HPI Physical exam (Primary Care) Vital Signs: Last Vital Signs Pulse 98 02/18/24 10:26 BP 92/60 02/18/24 10:26 Pulse Ox 97 02/18/24 10:26 Oxygen Delivery Method Room Air 02/18/24 10:26 BMI result Body Mass Index 30.4 Tobacco/Smoking Status: Tobacco use Status Tobacco use date assessed 02/18/24 02/18/24 10:35 Patient Tobacco Use Status Former Tobacco user 02/18/24 10:35 e-Cigarette/Vaping Use Never Used 02/18/24 10:21 PHQ-9: PHQ-9 Score PHQ-9: Total score 4 02/18/24 10:52 Depression Screening Interpretation: Negative Thrive Assessment: Date of Thrive Assessment Date Thrive assessed 02/18/24 02/18/24 10:35 Const Other: Alert oriented x3, ambulatory with normal gait Orientation/consciousness: patient oriented x3 HENMT Head: Yes normocephalic and Yes atraumatic Ears: hearing grossly normal bilaterally, external ears normal and TM's normal bilaterally General nose exam: Normal external nose present Face and sinus: Yes face symmetric Mouth: Normal oral and palatal mucosa present, oropharynx normal and moist mucous membranes Eyes General: appearance normal, both eyes and all related structures Neck Other: Slight tenderness on palpation over both trapezius muscle Neck: Yes full ROM, Yes no lymphadenopathy and Yes supple Resp Auscultation: clear to auscultation bilaterally Cardio Other: S1-S2 present regular rate and rhythm Skin General skin exam: no rashes or lesions noted Neuro General: patient oriented x3, tone normal, moves all extremities and no focal motor deficits Assessment and Plan Assessment & Plan (1) Lumbago: Code(s): M54.50 - Low back pain, unspecified (2) History of cervical spinal surgery: Comment: surgery in c-spine x 3 due to disc herniations done at [facility] - Dr Pantoja, Dr Susie Feliciano Code(s): Z98.890 - Other specified postprocedural states (3) Cervicalgia: Code(s): M54.2 - Cervicalgia Plan X-ray of both lumbar spine and cervical spine ordered, patient states that she is going to be scheduling an appointment with Dr. eFliciano for further evaluation management after x-rays are done. Advised to take Tylenol 650 mg per tablet 1-2 tablets every 12 hours as needed for pain. Apply either Salonpas patch with lidocaine or warm compress to affected area Orders: Orders XR cervical spine w flex/ext 02/18/24 M54.2 - Cervicalgia, M54.50 - Low back pain, unspecified, Z98.890 - Other specified postprocedural states XR lumbar spine 6V w bending 02/18/24 M54.2 - Cervicalgia, M54.50 - Low back pain, unspecified, Z98.890 - Other specified postprocedural states Coding Level of Care Code Est Pt Level 3 (96255) Diagnoses Lumbago M54.50 History of cervical spinal surgery Z98.890 Cervicalgia M54.2 Additional Codes MELA-7 Assessment Billing - MELA-7 Assessment Tool: MELA-7 Assessment [id number] ([id number])
[2024-02-18 10:26] VITALS: BP 92/60; PULSE 98; O2SAT 97; BMI 30.4
== END 2024-02-18 12:02 | disposition home or self-care (01) ==
PROVIDERS: PCP Internal Medicine; Visit Provider Internal Medicine
DX: M54.50 Low back pain, unspecified (principal); Z98.890 Other specified postprocedural states; M54.2 Cervicalgia
CPT/HCPCS: 99213

== ENCOUNTER 2024-02-26 10:05 | Outpatient (REF) | payer OTHER, SELFPAY ==
--- NOTE | ~2024-02-26 | XR_ITS ---
EXAMINATION: XR CERVICAL SPINE CLINICAL INFORMATION: Cervicalgia. COMPARISON: CT cervical spine dated 10/13/2019; cervical spine radiographs dated 10/31/2014. TECHNIQUE: 4 views of the cervical spine, inclusive of flexion and extension views, were obtained. FINDINGS: Vertebral body heights and alignment are normal. There has been a prior fusion extending from C4 through C7, with intact anterior fixator plate and fixator screws at C6-C7. No hardware failure or loosening is seen. There is no instability with flexion or extension. The posterior elements are intact. The dens is intact. The prevertebral soft tissues are unremarkable. XR/XR lumbar spine 4V min IMPRESSION: There has been a prior fusion extending from C4 through C7. No hardware failure or loosening is seen. There is no instability with flexion or extension. EXAMINATION: XR LUMBOSACRAL SPINE CLINICAL INFORMATION: Lower back pain. COMPARISON: Lumbar spine radiographs dated 02/18/2007. TECHNIQUE: AP, bilateral oblique and lateral views of the lumbar spine and lateral view of the lumbosacral junction. FINDINGS: Vertebral body heights and alignment are normal. At L5-S1, there is moderately severe disc space narrowing. The remaining disc spaces are relatively well-maintained. No acute fracture or spondylolisthesis is seen. There is multi-level lower thoracic and lumbar endplate arthropathy and Schmorl's node formation. The posterior elements are intact. No spondylolysis defect is seen on the oblique views. The paravertebral soft tissues are unremarkable. Tubal ligation clips are noted. There are multiple pelvic phleboliths. There are right upper quadrant surgical clips. IMPRESSION: 1. There is moderately severe degenerative disc disease at L5-S1. 2. There is multi-level lower thoracic and lumbar endplate arthropathy.
--- NOTE | ~2024-02-26 | XR_ITS ---
EXAMINATION: XR CERVICAL SPINE CLINICAL INFORMATION: Cervicalgia. COMPARISON: CT cervical spine dated 10/13/2019; cervical spine radiographs dated 10/31/2014. TECHNIQUE: 4 views of the cervical spine, inclusive of flexion and extension views, were obtained. FINDINGS: Vertebral body heights and alignment are normal. There has been a prior fusion extending from C4 through C7, with intact anterior fixator plate and fixator screws at C6-C7. No hardware failure or loosening is seen. There is no instability with flexion or extension. The posterior elements are intact. The dens is intact. The prevertebral soft tissues are unremarkable. XR/XR cervical spine w flex/ext IMPRESSION: There has been a prior fusion extending from C4 through C7. No hardware failure or loosening is seen. There is no instability with flexion or extension. EXAMINATION: XR LUMBOSACRAL SPINE CLINICAL INFORMATION: Lower back pain. COMPARISON: Lumbar spine radiographs dated 02/18/2007. TECHNIQUE: AP, bilateral oblique and lateral views of the lumbar spine and lateral view of the lumbosacral junction. FINDINGS: Vertebral body heights and alignment are normal. At L5-S1, there is moderately severe disc space narrowing. The remaining disc spaces are relatively well-maintained. No acute fracture or spondylolisthesis is seen. There is multi-level lower thoracic and lumbar endplate arthropathy and Schmorl's node formation. The posterior elements are intact. No spondylolysis defect is seen on the oblique views. The paravertebral soft tissues are unremarkable. Tubal ligation clips are noted. There are multiple pelvic phleboliths. There are right upper quadrant surgical clips. IMPRESSION: 1. There is moderately severe degenerative disc disease at L5-S1. 2. There is multi-level lower thoracic and lumbar endplate arthropathy.
== END 2024-02-26 10:06 | disposition home or self-care (01) ==
LOC: HO.HMGCX 10:05
PROVIDERS: PCP Internal Medicine; Visit Provider Internal Medicine
DX: M54.2 Cervicalgia (principal); M54.50 Low back pain, unspecified; Z98.890 Other specified postprocedural states
CPT/HCPCS: 72052; 72110

== ENCOUNTER 2024-03-10 13:39 | Outpatient (AMB) | payer OTHER, SELFPAY ==
--- NOTE | 2024-03-10 13:44 | MHC.OFFVIS ---
Intake Vital Signs 03/10/24 13:49 Height 5 ft 1 in Weight 162 lb 4 oz BMI 30.7 BP 104/70 Blood Pressure Location Lt brachial Position Sitting Pulse 66 Pulse Source Pulse Oximeter Pulse Oximetry (%) 95 Oxygen Delivery Method Room Air Intake Visit Reasons: 6 mo f/u -Sleep - CONF w/address Intake Note: Patient presents for 6 months F/U. Allergies prochlorperazine [From Compazine] Allergy (Severe, Verified 03/10/24 13:49) ANAPHYLAXIS Sulfa (Sulfonamide Antibiotics) [Sulfa (Sulfonamides)] Allergy (Severe, Verified 03/10/24 13:49) ANAPHYLAXIS lithium [[place]] Allergy (Intermediate, Verified 03/10/24 13:49) DIZZINESS,Balance problems azithromycin [From Zithromax] Allergy (Unknown, Verified 03/10/24 13:49) gi upset lurasidone [From LATUDA] Allergy (Unknown, Verified 03/10/24 13:49) AUDITORY AND VISUAL HALLUCINATIONS, SUICIDAL From Paxil Allergy (Severe, Uncoded 02/18/24 10:50) DIFFICULTY BREATHING,TONGUE SWOLLEN From Prozac Allergy (Intermediate, Uncoded 02/18/24 10:50) PANIC ATTACK HAYFEVER Allergy (Intermediate, Uncoded 02/18/24 10:50) sinus congestion HPI HPI Comments History of Present Illness Details 53 y/o female patient presents for follow up of JESSICA on CPAP. The home sleep study result was significant for a severe degree of sleep apnea. The AHI was 47/hr and oxygen kyler was 77%. Pt underwent titration study and started CPAP at [id number]. Pt reports she changed to medium nasal cushion and she feels better with it. She sleeps better, 5-6 hrs sleep. She feels more awake has energy during daytime. She also cut down soda intake. The CPAP compliance and therapy response (12/09/23-03/07/24) reviewed. She is on CPAP at [id number]. The usage days 99% and the average usage hours 4 hrs 38 min. The AHI was 8.2/hr. The apnea index was central 0.2 and the obstructive 4.5, unknown 2.3. [facility] Medical History (Updated 02/18/24 @ 10:59 by Hannah Vidal MD) Lumbago Calcaneal spur of left foot Pain of left heel Witnessed apneic spells Loud snoring Excessive daytime sleepiness Dyslipidemia Vitamin D deficiency Bipolar disorder Pre-diabetes Knee pain, bilateral Surgical History History of surgery History of cervical spinal surgery History of cholecystectomy History of tonsillectomy History of bunionectomy History of appendectomy History of section Family History Father Diabetes Bipolar 1 disorder Paternal Grandfather Myocardial infarction Substance use disorder Paternal Uncle Myocardial infarction Mental health disorder Paternal Grandmother Substance use disorder Maternal Uncle Substance use disorder Paternal Aunt Mental health disorder Social History Housing: Condominium Patient Tobacco Use Status: Former Tobacco user e-Cigarette/Vaping Use: Never Used Substance Use Type: Marijuana service: No Current occupational status: disabled Cognitive needs: No Hearing needs: No Vision needs: Yes Female Reproductive History Menstrual Age of Menarche: 17 Review of Systems Const All systems reviewed & are unremarkable except as noted in HPI and below ENT Reports Normal hearing present Neuro Reports Normal hearing present Physical Exam Vital Signs: BMI result Body Mass Index 30.7 Const General: cooperative Nutritional Appearance: obese Orientation/consciousness: patient oriented x3 Neck Neck: Yes full ROM and Yes supple Resp Effort & Inspection: normal respiratory effort and able to speak in complete sentences Neuro General: patient oriented x3, gait normal and moves all extremities Cranial nerves: Yes Normal facial strength present, Yes Midline tongue present, Yes Symmetric palate elevation present, Yes Normal hearing present, Yes Ability to bilaterally rotate head present and Yes Ability to bilaterally elevate shoulders present Cognition (Neuro): normal cognition Gait exam (Neuro): Normal gait present Motor exam (neuro): 5/5 motor strength present throughout, Pronator motor function not present and no tremor noted Psych Appearance: grossly normal Mental Status: mental status grossly normal Speech and movement: Normal speech and movement present Affect: normal affect Attitude: cooperative Assessment & Plan Assessment & Plan (1) Sleep apnea: Comment: Severe degree of sleep apnea. The AHI was 47/hr and oxygen kyler was 77% Code(s): G47.30 - Sleep apnea, unspecified Plan Advised patient to try CPAP at [id number]. Continue to use CPAP as patient experiences good clinical effects, better quality sleep and daytime sleepiness has improved. Stressed compliance, use CPAP nightly and more than 4 hrs. Continue to take magnesium qHS and practice good sleep hygiene. Wt reduction advised. Coding Level of Care Code Est Pt Level 3 (81936) Diagnoses Sleep apnea G47.30
[2024-03-10 13:49] VITALS: BP 104/70; PULSE 66; O2SAT 95; BMI 30.7
== END 2024-03-10 14:06 | disposition home or self-care (01) ==
PROVIDERS: PCP Internal Medicine; Visit Provider Nurse Practitioner Family
DX: G47.30 Sleep apnea, unspecified (principal)
CPT/HCPCS: 99213

== ENCOUNTER → 2024-03-10 13:39 | Outpatient (BNVA) | payer OTHER, SELFPAY | PROVIDERS: PCP Internal Medicine; Visit Provider Nurse Practitioner Family | DX: G47.30 Sleep apnea, unspecified (principal); Z99.89 Dependence on other enabling machines and devices | CPT/HCPCS: 99212 ==

== ENCOUNTER 2024-04-14 13:29 | Outpatient (REF) | payer OTHER, SELFPAY ==
--- NOTE | ~2024-04-14 | MM_ITS ---
EXAMINATION: MM DIAGNOSTIC DIGITAL BREAST TOMOSYNTHESIS, BILATERAL CLINICAL INFORMATION: 6 month follow-up for complicated cyst versus nodule right breast far anterior slightly medial 3:00 axis. Patient due for bilateral screening. COMPARISON: Mammography: 05/26/2023, 11/10/2022, 10/22/2022, and dating back to 2013. TECHNIQUE: Digital breast tomosynthesis is performed in both the craniocaudal and mediolateral oblique views along with computer-aided detection (CAD). Synthesized 2D images are generated from the tomosynthesis. FINDINGS: The breasts are heterogeneously dense, which may obscure small masses (ACR BI-RADS breast composition Category c). The previously seen bilobed nodule at 3:00 in the far anterior right breast has significantly decreased in size on today's examination, from 5 mm to approximately 2 mm in diameter. This strongly favors benignity, and no further follow-up recommended. Otherwise there are no suspicious masses, suspicious grouped calcifications, or areas of architectural distortion in either breast. The parenchymal pattern is stable from prior exams. MM/MM tomosynthesis diagnostic BI IMPRESSION: Small nodule at 3:00 axis significantly smaller, and benign. No further assessment required. Otherwise, no findings suspicious for malignancy in either breast. Recommend the patient return to routine annual screening. ASSESSMENT: BI-RADS BI-RADS 2 - Benign Findings RECOMMENDATION: 1 year F/U Results were provided to the patient at time of visit by the technologist. This patient's information was entered into a reminder system with a target due date for their next mammogram.
== END 2024-04-14 13:30 | disposition home or self-care (01) ==
LOC: HO.MAMMO 13:29
PROVIDERS: PCP Internal Medicine; Visit Provider Internal Medicine
DX: N63.15 Unspecified lump in the right breast, overlapping quadrants (principal)
CPT/HCPCS: 77062; 77066

== ENCOUNTER → 2024-04-14 14:00 | Outpatient (BNV) | payer OTHER, SELFPAY | PROVIDERS: PCP Internal Medicine; Visit Provider Radiology Diagnostic Radiology | DX: R92.8 Other abnormal and inconclusive findings on diagnostic imaging of breast (principal) | CPT/HCPCS: 77066; G0279 ==

== ENCOUNTER 2024-06-09 14:09 | Outpatient (AMB) | payer OTHER, SELFPAY ==
--- NOTE | 2024-06-09 14:13 | MHC.OFFVIS ---
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: Writer Technical Publications Present (Sho) Allergies prochlorperazine [From Compazine] Allergy (Severe, Verified 06/09/24 14:14) ANAPHYLAXIS Sulfa (Sulfonamide Antibiotics) [Sulfa (Sulfonamides)] Allergy (Severe, Verified 06/09/24 14:14) ANAPHYLAXIS lithium [[place]] Allergy (Intermediate, Verified 06/09/24 14:14) DIZZINESS,Balance problems azithromycin [From Zithromax] Allergy (Unknown, Verified 06/09/24 14:14) gi upset lurasidone [From LATUDA] Allergy (Unknown, Verified 06/09/24 14:14) AUDITORY AND VISUAL HALLUCINATIONS, SUICIDAL From Paxil Allergy (Severe, Uncoded 02/18/24 10:50) DIFFICULTY BREATHING,TONGUE SWOLLEN From Prozac Allergy (Intermediate, Uncoded 02/18/24 10:50) PANIC ATTACK HAYFEVER Allergy (Intermediate, Uncoded 02/18/24 10:50) sinus congestion HPI Comments Details: She 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 She is doing well with no concerns. Requesting a refill on her valacyclovir used daily. Attempting to eat a healthy diet with calcium and vitamin D and stays active with exercise. Currently sexually active. Denies any vaginal dryness or irritation. STI testing offered, declines testing. Last pap smear; 2022. Last mammogram; 2023. Plans the cologard. Denies any family history of breast, ovarian or colon cancer. [facility] Medical History Polyarthralgia Lumbago Calcaneal spur of left foot Pain of left heel Witnessed apneic spells Loud snoring Excessive daytime sleepiness Dyslipidemia Vitamin D deficiency Bipolar disorder Pre-diabetes Knee pain, bilateral Surgical History History of surgery History of cervical spinal surgery History of cholecystectomy History of tonsillectomy History of bunionectomy History of appendectomy History of section Family History Father Diabetes Bipolar 1 disorder Paternal Grandfather Myocardial infarction Substance use disorder Paternal Uncle Myocardial infarction Mental health disorder Paternal Grandmother Substance use disorder Maternal Uncle Substance use disorder Paternal Aunt Mental health disorder Social History (Updated 06/09/24 @ 14:18 by GE Workman) Housing: Condominium Patient Tobacco Use Status: Former Tobacco user e-Cigarette/Vaping Use: Never Used Substance Use Type: Marijuana service: No Current occupational status: disabled Cognitive needs: No Hearing needs: No Vision needs: Yes Female Reproductive History Menstrual Age of Menarche: 17 control method: permanent sterilization Permanent Sterilization: BTL Menopause type: surgical Total pregnancies: 1 Full term: 1 Number of Living Children: 1 Date of last pap smear: 12/30/22 (neg pap and hpv) History of abnormal pap smear: Yes (1995 ascus) Date of Mammogram: 04/14/24 (Birad 2) Review of Systems Const All systems reviewed & are unremarkable except as noted in HPI and below Reports as per HPI Eyes Reports no additional complaints ENT Reports no additional complaints Card Reports no additional complaints Resp Reports no additional complaints GI Reports as per HPI and Reports no additional complaints Reports as per HPI Musc Reports no additional complaints Skin/Breast Reports as per HPI Neuro Reports no additional complaints Psych Reports no additional complaints Endo Reports no additional complaints Daniel/Lymph Reports no additional complaints Aller/Immun Reports no additional complaints Physical Exam Vital Signs: Last Vital Signs BP 102/64 06/09/24 14:14 BMI result Body Mass Index 30.2 Const General: cooperative, healthy appearing, no acute distress, well developed and alert Orientation/consciousness: patient oriented x3 HEENT Head: Yes normal to inspection Eyes General: appearance normal, both eyes and all related structures Neck Neck: Yes normal visual inspection Thyroid: Thyroid normal Chest Chest palpation & inspection: normal inspection of the chest and other (no puckering, dimpling, peau de orange, retraction, discharge, masses) Breast/axilla inspection: normal inspection of the breasts Breast/axilla palpation: normal palpation of the breasts Resp Effort & Inspection: normal respiratory effort GI Inspection: Yes normal to inspection Palpation (GI): Soft to palpation Rectal Exam - Female: deferred General: Yes bladder normal to palpation External Female Exam: normal external appearance and normal appearance of the urethra Speculum Exam - Vagina: normal appearance of the vagina, normal palpation and normal vaginal discharge Speculum Exam - Cervix: normal appearance of the cervix and normal palpation Bimanual exam- vagina & uterus: normal bimanual exam, normal palpation, uterine size normal, bladder normal to palpation, normal palpation and non-tender Bimanual Exam- Adnexa, other: no masses Skin General skin exam: no rashes or lesions noted Rashes: no rashes Neuro General: patient oriented x3 Cognition (Neuro): normal cognition Extrem General: Yes normal to inspection Psych Attitude: cooperative Thought process: Normal thought process present Assessment & Plan Assessment & Plan (1) Encounter for well woman exam with routine gynecological exam: Code(s): Z01.419 - Encounter for gynecological examination (general) (routine) without abnormal findings Category: Medical Plan Discussed: Current recommendations for pap smears per ASCCP guidelines. Breast awareness, periodic self breast exams and yearly mammogram. Maintain a healthy lifestyle, well balanced diet including Calcium 1,200 mg and Vitamin D 600 IU daily, and routine exercise. Use of condoms for STI prevention if indicated. Contact the office with any postmenopausal bleeding. Patient verbalizes understanding and agrees to the plan of care. She was given opportunity to ask questions and all questions were answered to the best of my ability. RTO in 1 year for annual production manager exam. This note is constructed using voice recognition software. While every effort has been made to ensure accuracy, certified marine mechanic errors may have been included. Medications: Refilled valacyclovir (Valtrex) 500 mg PO DAILY 90 tabs 4RF 90 days Coding Level of Care Code Est Pt Prev Care 40-64y(09992) Diagnoses Encounter for well woman exam with routine gynecological exam Z01.419
[2024-06-09 14:14] VITALS: BP 102/64; BMI 30.2
== END 2024-06-09 14:43 | disposition home or self-care (01) ==
PROVIDERS: PCP Internal Medicine; Visit Provider Advanced Practice Midwife
DX: Z01.419 Encounter for gynecological examination (general) (routine) without abnormal findings (principal)
CPT/HCPCS: 99396

== ENCOUNTER → 2024-06-09 14:09 | Outpatient (BNVA) | payer OTHER, SELFPAY | PROVIDERS: PCP Internal Medicine; Visit Provider Advanced Practice Midwife ==

== ENCOUNTER 2024-06-14 09:18 | Outpatient (AMB) | payer OTHER, SELFPAY ==
--- NOTE | 2024-06-14 09:20 | A.OFFPC_ITS ---
Vital Signs 06/14/24 09:23 Height 5 ft 1 in Weight 157 lb BMI 29.7 BP 118/74 Blood Pressure Location Lt brachial Position Sitting Pulse 75 Pulse Source Pulse Oximeter Pulse Oximetry (%) 97 Oxygen Delivery Method Room Air Intake Visit Reasons: PE Intake Note: Pt is here for her annual PE. Mammogram 04/14/24. Pap 12/30/22. Colonoscopy declined Allergies prochlorperazine [From Compazine] Allergy (Severe, Verified 06/14/24 09:40) ANAPHYLAXIS Sulfa (Sulfonamide Antibiotics) [Sulfa (Sulfonamides)] Allergy (Severe, Verified 06/14/24 09:40) ANAPHYLAXIS lithium [[place]] Allergy (Intermediate, Verified 06/14/24 09:40) DIZZINESS,Balance problems azithromycin [From Zithromax] Allergy (Unknown, Verified 06/14/24 09:40) gi upset lurasidone [From LATUDA] Allergy (Unknown, Verified 06/14/24 09:40) AUDITORY AND VISUAL HALLUCINATIONS, SUICIDAL From Paxil Allergy (Severe, Uncoded 06/14/24 09:40) DIFFICULTY BREATHING,TONGUE SWOLLEN From Prozac Allergy (Intermediate, Uncoded 06/14/24 09:40) PANIC ATTACK HAYFEVER Allergy (Intermediate, Uncoded 06/14/24 09:40) sinus congestion Medication List - Last Reconciled 06/14/24 by Hannah Vidal MD albuterol sulfate 90 mcg/actuation (Ventolin HFA) 1 inh inhalation QID PRN 30 days clonazepam 1 mg PO BID olanzapine (Zyprexa) 10 mg PO DAILY olanzapine (Zyprexa) 15 mg PO QPM trazodone 300 mg PO PRN valacyclovir (Valtrex) 500 mg PO DAILY 90 days Tobacco use date assessed: 06/14/24 Dental Screening Dental Screen Date: 06/14/24 Did you have a dental visit in the last 12 months?: Yes Did you have a dental problem in the last 6 months where you did not have access to dental care?: No Was dental information given to patient?: Patient has dentist HPI PE HPI0 Details 53 year old Lady here today for physical exam. She is up-to-date with her screening mammogram, last done 04/14/2024, and is up-to-date with her cervi niyah cancer screening with last Pap done 12/30/2022 . She has never had a colonoscopy, declined procedure. She is currently being seen by psychiatry, Yonis Beth, and being treated for bipolar disorder. She has chronic cervical pain, with cervical spondylosis , with history of 3 spinal surgery, and has lumbar spondylosis, currently being followed by Dr. Susie Nuñez at [facility], and has been referred for physical therapy. [facility] Medical History (Updated 06/20/24 @ 01:30 by Hannah Vidal MD) Lumbar spondylosis Cervical spondylosis Polyarthralgia Lumbago Calcaneal spur of left foot Pain of left heel Witnessed apneic spells Loud snoring Excessive daytime sleepiness Dyslipidemia Vitamin D deficiency Bipolar disorder Pre-diabetes Knee pain, bilateral Surgical History History of surgery History of cervical spinal surgery History of cholecystectomy History of tonsillectomy History of bunionectomy History of appendectomy History of section Family History Father Diabetes Bipolar 1 disorder Paternal Grandfather Myocardial infarction Substance use disorder Paternal Uncle Myocardial infarction Mental health disorder Paternal Grandmother Substance use disorder Maternal Uncle Substance use disorder Paternal Aunt Mental health disorder Social History Housing: Condominium Patient Tobacco Use Status: Former Tobacco user e-Cigarette/Vaping Use: Never Used Substance Use Type: Marijuana service: No Current occupational status: disabled Cognitive needs: No Hearing needs: No Vision needs: Yes Female Reproductive History Menstrual Age of Menarche: 17 Date of last pap smear: 12/30/22 Date of Mammogram: 04/14/24 Questionnaire PHQ-9 Over the last 2 weeks, how often have you been bothered by any of the following problems? 1. Little interest or pleasure in doing things: several days 2. Feeling down, depressed, or hopeless: several days 3. Trouble falling or staying asleep, or sleeping too much: several days 4. Feeling tired or having little energy: several days 5. Poor appetite or overeating: several days 6. Feeling bad about yourself - or that you are a failure or have let yourself or your family down: not at all 7. Trouble concentrating on things, such as reading the newspaper or watching television: several days 8. Moving or speaking so slowly that other people could have noticed. Or the opposite - being so fidgety or restless that you have been moving around a lot more than usual: not at all 9. Thoughts that you would be better off or of hurting yourself in some way: not at all Total score: 6 Depression Screening Interpretation: Positive (Currently being seen by Yonis Beth , treated for bipolar disorder) Depression Screening Follow-up: Existing condition and In treatment Depression Screening Done: Yes 60258 - PHQ-9 Billing: Yes Source: Developed by Drs. Dane Renner, Romina Dumnot, Hudson Flower and colleagues, with an educational isidro from [employer]. Thrive Questionnaire Date Thrive assessed: 06/14/24 I am a: Patient What is your living situation today?: I have a steady place to live Within the past 12 months, did the food you bought not last and you didn't have the money to get more?: Sometimes True Within the past 12 months, did you worry whether your food would run out before you got money to buy more?: Sometimes True Do you have trouble paying for medicines?: No Do you have trouble getting transportation to medical appointments?: Yes Do you have trouble paying your heating and electricity bill?: No Do you have trouble taking care of your child, family member or friend?: No Do you have trouble with day-to-day activities such as bathing, preparing meals, shopping, managing finances, etc.?: No Are you currently unemployed and looking for a job?: No Are you interested in more education?: No Please select the resources that you would like help with: Housing/Chcf Currently or been in a relationship where the following occur: I choose not to answer THRIVE Score: 3 AUDIT C Alcohol Use Questionnaire (AUDIT-C) 1. How often do you have a drink containing alcohol?: Never Total Score: 0 MELA-7 AMB Questionnaire MELA-7 Date MELA - 7 assessed: 06/14/24 Feeling nervous, anxious, or on edge: 1 = Several days Not being able to stop or control worryin = Several days Worrying too much about different things: 0 = Not at all Trouble relaxin = Several days Being so restless that it is hard to sit still: 1 = Several days Becoming easily annoyed or irritable: 1 = Several days Feeling afraid as if something awful might happen: 0 = Not at all Total MELA-7 score (0-4 normal; 5-9 mild; 10-14 moderate; 15-21 severe): 5 Source: Developed by Drs. Dane Renner, Romina Dumont, Hudson Flower and colleagues, with an educational isidro from [employer]. MELA-7 Assessment Billing MELA-7 Assessment Tool: MELA-7 Assessment 93629 Review of Systems Const All systems reviewed & are unremarkable except as noted in HPI and below Reports as per HPI Eyes Reports no additional complaints ENT Reports no additional complaints Card Reports no additional complaints Resp Reports no additional complaints GI Reports as per HPI and Reports no additional complaints Reports as per HPI Musc Reports no additional complaints Skin/Breast Denies breast pain, Denies breast mass and Denies rash Neuro Reports no additional complaints Psych Reports no additional complaints Endo Reports no additional complaints Daniel/Lymph Reports no additional complaints Aller/Immun Reports no additional complaints Physical exam (Primary Care) Vital Signs: Last Vital Signs Pulse 75 06/14/24 09:23 BP 118/74 06/14/24 09:23 Pulse Ox 97 06/14/24 09:23 Oxygen Delivery Method Room Air 06/14/24 09:23 BMI result Body Mass Index 29.7 Tobacco/Smoking Status: Tobacco use Status Tobacco use date assessed 06/14/24 06/14/24 09:24 Patient Tobacco Use Status Former Tobacco user 06/14/24 09:21 e-Cigarette/Vaping Use Never Used 06/14/24 09:21 PHQ-9: PHQ-9 Score PHQ-9: Total score 6 06/14/24 09:45 Depression Screening Interpretation: Positive (Currently being seen by Yonis Beth , treated for bipolar disorder) Depression Screening Follow-up: Existing condition and In treatment Thrive Assessment: Date of Thrive Assessment Date Thrive assessed 06/14/24 06/14/24 09:24 Currently or been in a relationship where the following occur: I choose not to answer Const Other: Alert oriented x3, ambulatory with normal gait Orientation/consciousness: patient oriented x3 HENMT Head: Yes normocephalic Ears: hearing grossly normal bilaterally, external ears normal and TM's normal bilaterally General nose exam: Normal external nose present Face and sinus: Yes face symmetric Mouth: Normal oral and palatal mucosa present, oropharynx normal and moist mucous membranes Eyes General: appearance normal, both eyes and all related structures Neck Neck: Yes full ROM, Yes no lymphadenopathy and Yes supple Chest Breast/axilla palpation: normal palpation of the breasts Resp Auscultation: clear to auscultation bilaterally Cardio Other: S1-S2 present regular rate and rhythm GI Palpation (GI): Soft to palpation, nontender, no guarding and no masses Back/Spine/Pelvis Other: Healed surgical scar over cervical spine, slight tenderness on palpation over trapezius, and SI joint, right more than the left, Skin General skin exam: no rashes or lesions noted Neuro General: patient oriented x3, gait normal, tone normal, moves all extremities, no focal motor deficits and deep tendon reflexes 2+ bilaterally Extrem General: Yes full ROM, Yes no joint enlargement, Yes no clubbing, cyanosis or edema and Yes normal gait Psych Appearance: grossly normal and well kempt Mental Status: mental status grossly normal Speech and movement: Normal speech and movement present Affect: normal affect Thought process: Normal thought process present Assessment and Plan Assessment & Plan (1) Annual visit for general adult medical examination with abnormal findings: Code(s): Z00.01 - Encounter for general adult medical examination with abnormal findings Plan: Will check appropriate labs. Advised to get dental visit every 6 months and regular eye exams, at least every 2 years. Take adequate calcium in diet and vitamin-D 3 at 2000 IU per cap once a day, in addition to weight-bearing exercises to help maintain good muscle tone and weight control. Instructed to do self-breast exam, and continue with yearly mammogram, currently up-to-date with her cervical cancer screening.. Up-to-date with her screening colonoscopy. Up-to-date with all her vaccinations (2) Pre-diabetes: Code(s): R73.03 - Prediabetes Plan: Your previous fasting blood sugars were elevated above 100 mg/dL. Impaired glucose metabolism increases the risk for developing diabetes mellitus type 2, as well as heart attack and stroke later on. Lifestyle changes that promotes weight loss, healthy eating habits, and regular exercise are important, and can prevent the progression to diabetes (3) Bipolar disorder: Comment: Followed by therapist and psychiatrist at [facility] Code(s): F31.9 - Bipolar disorder, unspecified Plan: Currently followed by psychiatry (4) Dyslipidemia: Code(s): E78.5 - Hyperlipidemia, unspecified Plan: Fasting lipid panel ordered, reinforced importance of following a low- cholesterol diet and getting regular exercise (5) Muscle spasm: Code(s): M62.838 - Other muscle spasm Plan: Prescription sent for tizanidine 4 mg per tablet to take 1 tablet at bedtime only as needed for painful muscle spasm patient has cervical and lumbar spondylosis currently being seen by Dr. Becker at [facility] , who has referred patient to undergo physical therapy (6) Sleep apnea: Comment: Severe degree of sleep apnea. The AHI was 47/hr and oxygen kyler was 77% Unable to tolerate CPAP or BiPAP Code(s): G47.30 - Sleep apnea, unspecified Plan: Patient unable to tolerate CPAP, states that symptoms are improving, Orders: Orders Basic Metabolic Panel Fasting 06/14/24 E55.9 - Vitamin D deficiency, unspecified, E78.5 - Hyperlipidemia, unspecified, F31.9 - Bipolar disorder, unspecified, G47.30 - Sleep apnea, unspecified, M62.838 - Other muscle spasm, R73.03 - Prediabetes, Z00.01 - Encounter for general adult medical examination with abnormal findings, Z71.89 - Other specified counseling Hemoglobin A1c 06/14/24 E55.9 - Vitamin D deficiency, unspecified, E78.5 - Hyperlipidemia, unspecified, F31.9 - Bipolar disorder, unspecified, G47.30 - Sleep apnea, unspecified, M62.838 - Other muscle spasm, R73.03 - Prediabetes, Z00.01 - Encounter for general adult medical examination with abnormal findings, Z71.89 - Other specified counseling Alanine Aminotransferase 06/14/24 E55.9 - Vitamin D deficiency, unspecified, E78.5 - Hyperlipidemia, unspecified, F31.9 - Bipolar disorder, unspecified, G47.30 - Sleep apnea, unspecified, M62.838 - Other muscle spasm, R73.03 - Prediabetes, Z00.01 - Encounter for general adult medical examination with abnormal findings, Z71.89 - Other specified counseling Aspartate Amino Transferase 06/14/24 E55.9 - Vitamin D deficiency, unspecified, E78.5 - Hyperlipidemia, unspecified, F31.9 - Bipolar disorder, unspecified, G47.30 - Sleep apnea, unspecified, M62.838 - Other muscle spasm, R73.03 - Prediabetes, Z00.01 - Encounter for general adult medical examination with abnormal findings, Z71.89 - Other specified counseling Lipid Panel 06/14/24 E55.9 - Vitamin D deficiency, unspecified, E78.5 - Hyperlipidemia, unspecified, F31.9 - Bipolar disorder, unspecified, G47.30 - Sleep apnea, unspecified, M62.838 - Other muscle spasm, R73.03 - Prediabetes, Z00.01 - Encounter for general adult medical examination with abnormal findings, Z71.89 - Other specified counseling Vitamin D 25-OH Total 06/14/24 E55.9 - Vitamin D deficiency, unspecified, E78.5 - Hyperlipidemia, unspecified, F31.9 - Bipolar disorder, unspecified, G47.30 - Sleep apnea, unspecified, M62.838 - Other muscle spasm, R73.03 - Prediabetes, Z00.01 - Encounter for general adult medical examination with abnormal findings, Z71.89 - Other specified counseling Medications: New tizanidine 4 mg PO BEDTIME PRN 14 tabs 0RF muscle spasticity Refilled albuterol sulfate 90 mcg/actuation (Ventolin HFA) 1 inh inhalation QID 30 days PRN 8.5 grams 1RF shortness of breath or wheezing Coding Level of Care Code Est Pt Prev Care 40-64y(78850) Diagnoses Annual visit for general adult medical examination with abnormal findings Z00.01 Pre-diabetes R73.03 Bipolar disorder F31.9 Dyslipidemia E78.5 Muscle spasm M62.838 Sleep apnea G47.30 Additional Codes MELA-7 Assessment Billing - MELA-7 Assessment Tool: MELA-7 Assessment 93803 ([id number])
[2024-06-14 09:23] VITALS: BP 118/74; PULSE 75; O2SAT 97; BMI 29.7
== END 2024-06-14 10:03 | disposition home or self-care (01) ==
PROVIDERS: PCP Internal Medicine; Visit Provider Internal Medicine
DX: Z00.00 Encounter for general adult medical examination without abnormal findings (principal); R73.03 Prediabetes; F31.9 Bipolar disorder, unspecified; E78.5 Hyperlipidemia, unspecified; M62.838 Other muscle spasm; G47.30 Sleep apnea, unspecified
CPT/HCPCS: 99396

== ENCOUNTER 2024-07-08 10:03 | Outpatient (REF) | payer OTHER, SELFPAY ==
[2024-07-08 13:43] LABS: Alanine Aminotransferase 16 U/L (0-31); Anion Gap 9 (12-20); Aspartate Amino Transferase 13 U/L (5-31); Blood Urea Nitrogen 7 mg/dL (9-16); Calcium 8.7 mg/dL (8.4-10.2); Carbon Dioxide 25 mmol/L (22-29); Chloride 107 mmol/L (96-108); Cholesterol 183 mg/dL (<200); Estimated Glomerular Filt Rate > 60; Glucose Fasting 137 mg/dL (60-99); HDL Cholesterol 46 mg/dL (>40); LDL Cholesterol Calculated 121 mg/dL (<100); Potassium 4.4 mmol/L (3.3-5.1); Sodium 137 mmol/L (135-145); Triglycerides 81 mg/dL (<150)
[2024-07-08 13:46] LABS: Vitamin D 25-OH Total 34.5 ng/mL (>30)
[2024-07-08 13:56] LABS: Estimated Average Glucose 131 mg/dL; Hemoglobin A1c % 6.2 % (<6.0)
== END 2024-07-08 10:04 | disposition home or self-care (01) ==
LOC: HO.HMGCLDS 10:03
PROVIDERS: PCP Internal Medicine; Visit Provider Internal Medicine
DX: Z00.01 Encounter for general adult medical examination with abnormal findings (principal); Z71.89 Other specified counseling; M62.838 Other muscle spasm; F31.9 Bipolar disorder, unspecified; R73.03 Prediabetes; E78.5 Hyperlipidemia, unspecified; G47.30 Sleep apnea, unspecified; E55.9 Vitamin D deficiency, unspecified
CPT/HCPCS: 36415; 80048; 80061; 82306; 83036; 84450; 84460

== ENCOUNTER 2025-05-05 14:43 | Outpatient (REF) | payer OTHER, SELFPAY ==
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
== END 2025-05-05 14:44 | disposition home or self-care (01) ==
LOC: HO.MAMMO 14:43
PROVIDERS: PCP Internal Medicine; Visit Provider Internal Medicine
DX: Z12.31 Encounter for screening mammogram for malignant neoplasm of breast (principal)
CPT/HCPCS: 77063; 77067

== ENCOUNTER → 2025-05-05 15:00 | Outpatient (BNV) | payer OTHER, SELFPAY | PROVIDERS: PCP Internal Medicine; Visit Provider Internal Medicine | DX: Z12.31 Encounter for screening mammogram for malignant neoplasm of breast (principal) | CPT/HCPCS: 77063; 77067 ==

== ENCOUNTER 2025-06-13 12:34 | Outpatient (AMB) | payer OTHER, SELFPAY ==
--- NOTE | 2025-06-13 12:35 | MHC.OFFVIS ---
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 Soybean Grower: Soybean Grower Present (alejandro) Accompanied by: Self / Same As Patient Allergies prochlorperazine (From Compazine) Allergy (Severe, Verified 06/13/25 12:42) ANAPHYLAXIS Sulfa (Sulfonamide Antibiotics) (Sulfa (Sulfonamides)) Allergy (Severe, Verified 06/13/25 12:42) ANAPHYLAXIS lithium ([place]) Allergy (Intermediate, Verified 06/13/25 12:42) DIZZINESS,Balance problems azithromycin (From Zithromax) Allergy (Unknown, Verified 06/13/25 12:42) gi upset lurasidone (From LATUDA) Allergy (Unknown, Verified 06/13/25 12:42) AUDITORY AND VISUAL HALLUCINATIONS, SUICIDAL From Paxil Allergy (Severe, Uncoded 06/14/24 09:40) DIFFICULTY BREATHING,TONGUE SWOLLEN From Prozac Allergy (Intermediate, Uncoded 06/14/24 09:40) PANIC ATTACK HAYFEVER Allergy (Intermediate, Uncoded 06/14/24 09:40) sinus congestion Is last menstrual period known: No Post menopausal: Yes Patient : No HPI Comments Details: Patient is a 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 She is doing well with no hand bindery assembly worker concerns. Needs refill on Valcyclovir, unable to stop due to symptoms onset, has tried a few times in the past. Currently not sexually active. STI testing offered; she declines. Attempting to eat a healthy diet with calcium and vitamin D and stays active with exercise. Last pap smear; 2022, negative. Last mammogram; 2024. Plans the Cologard. Denies any family history of breast, ovarian or colon cancer. [facility] Medical History Lumbar spondylosis Cervical spondylosis Polyarthralgia Lumbago Calcaneal spur of left foot Pain of left heel Witnessed apneic spells Loud snoring Excessive daytime sleepiness Dyslipidemia Vitamin D deficiency Bipolar disorder Pre-diabetes Knee pain, bilateral Surgical History History of surgery History of cervical spinal surgery History of cholecystectomy History of tonsillectomy History of bunionectomy History of appendectomy History of section Family History Father Diabetes Bipolar 1 disorder Paternal Grandfather Myocardial infarction Substance use disorder Paternal Uncle Myocardial infarction Mental health disorder Paternal Grandmother Substance use disorder Maternal Uncle Substance use disorder Paternal Aunt Mental health disorder Social History Housing: Condominium Patient Tobacco Use Status: Former Tobacco user e-Cigarette/Vaping Use: Never Used Substance Use Type: Marijuana service: No Current occupational status: disabled Cognitive needs: No Hearing needs: No Vision needs: Yes Female Reproductive History Menstrual Age of Menarche: 17 control method: permanent sterilization Total pregnancies: 1 Full term: 1 Date of last pap smear: 12/30/22 (negative pap smear, negative hpv ) History of abnormal pap smear: Yes (1995 ascus) Date of Mammogram: 05/05/25 (bi rad 2) Review of Systems Const All systems reviewed & are unremarkable except as noted in HPI and below Reports as per HPI Eyes Reports no additional complaints ENT Reports no additional complaints Card Reports no additional complaints Resp Reports no additional complaints GI Reports as per HPI and Reports no additional complaints Reports as per HPI Musc Reports no additional complaints Skin/Breast Reports as per HPI Neuro Reports no additional complaints Psych Reports no additional complaints Endo Reports no additional complaints Daniel/Lymph Reports no additional complaints Aller/Immun Reports no additional complaints Physical Exam Vital Signs: Last Vital Signs BP 112/66 06/13/25 12:46 BMI result Body Mass Index 29.5 Const General: cooperative, healthy appearing, no acute distress, well developed and alert Orientation/consciousness: patient oriented x3 HEENT Head: Yes normal to inspection Eyes General: appearance normal, both eyes and all related structures Neck Neck: Yes normal visual inspection Thyroid: Thyroid normal Chest Chest palpation & inspection: normal inspection of the chest and other (no puckering, dimpling, peau de orange, retraction, discharge, masses) Breast/axilla inspection: normal inspection of the breasts Breast/axilla palpation: normal palpation of the breasts Resp Effort & Inspection: normal respiratory effort GI Inspection: Yes normal to inspection and Yes scar Palpation (GI): Soft to palpation Rectal Exam - Female: deferred General: Yes bladder normal to palpation External Female Exam: normal external appearance and normal appearance of the urethra Speculum Exam - Vagina: normal appearance of the vagina, normal palpation and normal vaginal discharge Speculum Exam - Cervix: normal appearance of the cervix and normal palpation Bimanual exam- vagina & uterus: normal bimanual exam, normal palpation, uterine size normal, bladder normal to palpation, normal palpation and non-tender Bimanual Exam- Adnexa, other: no masses Skin General skin exam: no rashes or lesions noted Rashes: no rashes Neuro General: patient oriented x3 Cognition (Neuro): normal cognition Extrem General: Yes normal to inspection Psych Attitude: cooperative Thought process: Normal thought process present Assessment & Plan Assessment & Plan (1) Encounter for well woman exam with routine gynecological exam: Code(s): Z01.419 - Encounter for gynecological examination (general) (routine) without abnormal findings Category: Medical Plan Discussed: Current recommendations for pap smears per ASCCP guidelines. Breast awareness, periodic self breast exams and yearly mammogram. Maintain a healthy lifestyle, well balanced diet including Calcium 1,200 mg and Vitamin D 600 IU daily, and routine exercise. Contact the office with any postmenopausal bleeding. Patient verbalizes understanding and agrees to the plan of care. She was given opportunity to ask questions and all questions were answered to the best of my ability. 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 This note is constructed using voice recognition software. While every effort has been made to ensure accuracy, baseball hand sewer errors may have been included. Medications: Refilled valacyclovir (Valtrex) 500 mg PO DAILY 90 tabs 4RF 90 days Coding Level of Care Code Est Pt Prev Care 40-64y(77224) Diagnoses Encounter for well woman exam with routine gynecological exam Z01.419
[2025-06-13 12:46] VITALS: BP 112/66; BMI 29.5
--- OUTSIDE RECORDS SUMMARY | 2025-06-13 13:42 | XMS_ITS | Patient Health Record ---
Author Organization [facility] Konrad Plummer Address [address] [facility] [place] [address] Care Team Providers Care English Instructor Name Role Phone Young BONILLA, Hannah Dominguez Primary Care Provider Un available Black, Steffanie Unavailable [phone] Allergies Allergen (clinical drug ingredient) Drug/Non Drug Allergy documented on EMR Reaction Allergy Type Onset Date Status Substance with sulfonamide structure and antibacterial mechanism of action (substance) Sulfa Antibiotics Unknown Drug Allergy Active Reason For Referral No Information Medications Medication SIG (Take, Route, Frequency, Duration) Notes Start Date End Date Status Night Splint AFO - L1930 1 wear at rest; Duration: 30 days Active Feldene 20 MG 1 capsule with food Orally Once a day; Duration: 30 day(s) PRN 06/18/2023 Not-Taking Medrol 4 MG as directed Orally Daily; Duration: 6 days 08/20/2023 Active Valtrex 500 MG 1 tablet Orally Once a day Active clonazePAM 2 MG 1 tablet Orally Once a day Active traZODone HCl 300 MG 0.5 tablet at bedti me Orally Once a day Active OLANZapine 10 MG 1 tablet Orally Once a day Active OLANZapine 15 MG 1 tablet Orally Once a day Active Social History Tobacco Use: Social History Observation Description Date Details (start date - stop date) Former Smoker NA - NA Tobacco Use/Smoking Question Answer Notes Are you a: former smoker Additional Findings: Tobacco Non-User Current no n-smoker Alcohol Screen Question Answer Notes Did you have a drink containing alcohol in the p ast year? No Points 0 Interpretation Negative Tobacco use other than smoking: Question Answer Notes Are you an other tobacco user? No Problems Problem Type SNOMED Code ICD Code Onset Dates Problem Status W/U Status Risk Notes Problem Interstitial myositis (74213806) Interstitial myositis of left foot (M60.172) Active confirmed Plan Of Treatment No Information Insurance Providers Payer Name Payer Address Payer Phone Subscriber Number Group Number Insured Name Patient Relationship to Insured Coverage Start Date Coverage End Date [facility] [employer] Claims [address] [place] [phone] [id number] Cami Bales Self - patient is the insured Medical (General) History Medical History History ICD Code Anxiety asthma Depression Headaches/Migraines Chicken pox Joint implants/screws Bipolar disorder Sleep apnea Insomnia PTSD Surgical History Surgery Date(Month/Year) tonsillectomy appendectomy gall bladder removal neck surgery 3x bunionectomy section tubal ligation
--- OUTSIDE RECORDS SUMMARY | 2025-06-13 13:42 | XMS_ITS | Clinical Summary ---
Author Organization [facility] Address [address] [place] [address] Care Team Providers Care Collection Advisor Name Role Phone Hannah Vidal MD Primary Care Provider Surgical History Surgery Date Site/Laterality Comments APPENDECTOMY 1997 PROCEDURE: HISTORICAL APPENDECTOMY SECTION PROCEDURE: [place] DELIVERY ONLY TONSILLECTOMY 1988 PROCEDURE: HISTORICAL TONSILLECTOMY APPENDECTOMY PROCEDURE: [place] APPENDECTOMY CHOLECYSTECTOMY N/A PROCEDURE: HISTORICAL CHOLECYSTECTOMY TONSILLECTOMY N/A PROCEDURE: HISTORICAL TONSILLECTOMY NECK SURGERY 03/11/2007 N/A PROCEDURE: HISTORICAL NECK SURGERY; COMMENT: C4-5, C5-[address] Godinez/[place], [facility] OTHER SURGICAL HISTORY N/A PROCEDURE: HISTORY OTHER; COMMENT: Burnionectomy APPENDECTOMY N/A PROCEDURE: HISTORICAL APPENDECTOMY SECTION N/A PROCEDURE: HISTORICAL DELIVERY OTHER SURGICAL HISTORY N/A PROCEDURE: HISTORY OTHER; COMMENT: Gallbladder removal OVARIAN CYST REMOVAL PROCEDURE: [place] OVARIAN CYSTECTOMY UNI/BI NECK SURGERY 02/18/2009 PROCEDURE: HISTORICAL NECK SURGERY; COMMENT: C6-7 ACDF, removal of C4-6 hardware, Dr. Becker, [facility] NECK SURGERY 05/29/2006 PROCEDURE: HISTORICAL NECK SURGERY; COMMENT: C5-6 anterior cervical discectomy, Dr. Suazo, [facility] Medical History Medical History Date Comments Bipolar [...] D deficiency DX:Vitamin D deficiency Bipolar disorder ([facility] V2 4, [facility] V28) DX:Bipolar disorder ([facility]); COMMENT: As well as PTSD, anxiety disorder [...] Vaccines (1 of 2) 2021 COVID-19 Vaccine (1 - 2023-2 5 season) 2024 Colorectal Cancer Screening: Colonoscopy 09/21/2024 Depression Screening 09/21/2024 HIV Screening 09/21/2024 Hepatitis C Screening 09/21/2024 Social Influencers of Health Screening 09/21/2024 Influenza Vaccine (#1) 2025 HIB Vaccines Aged Out No longer [...] age to complete this topic Care Teams Collection Advisor Relationship Specialty Start Date End Date Hannah Vidal MD [address] [facility] [place] [address] PCP - General 02/26/24
--- OUTSIDE RECORDS SUMMARY | 2025-06-13 13:42 | XMS_ITS | Clinical Summary ---
Author Organization [facility] Address [address] [place] [address] Care Team Providers Care Mattress Inspector Name Role Phone Hannah Vidal MD Primary Care Provider [phone] Allergies Active Allergy Reactions Criticality Noted Date Comments [place] 06/29/2019 Sulfa Antibiotics 06/29/2019 Azithromycin 06/29/2019 Medications Medication Sig Dispensed Refills Start Date End Date Status clonazePAM (KlonoPIN) 1 MG tablet TK 1 T PO TID 2 06/07/2019 Active potassium citrate (UROCIT-K) 5 MEQ (540 MG) SR tablet TK 1 T PO ONCE D 5 06/20/2019 Activ e topiramate (TOPAMAX) 100 MG tablet TK 1 T PO QHS 2 06/20/2019 Active traZODone (DESYREL) 100 MG tablet TK 4 TS PO QHS PRN 5 06/07/2019 Active Active Problems Problem Noted Date Diagnosed Date Back pain of lumbar region with sciatica 019 Chronic pain of both knees 06/29/2019 Family History Medical History Relation Name Comments Diabetes Father Hyperlipidemia Father Relation Name Status Comments Father Social History Tobacco Use Types Packs/Day Years Used Date Smoking Tobacco: Never Smokeless Tobacco: Never Alcohol Use Standard Drinks/Week Comments No 0 (1 standard drink = 0.6 oz pur e alcohol) Sex and Gender Information Value Date Recorded Sex Assigned at Not on file Gender Identity Not on file Sexual Orientation Not on file Last Filed Vital Signs Vital Sign Reading Time Taken Comments Blood Pressure - - Pulse - - Temperature - - Respiratory Rate - - Oxygen Saturation - - Inhaled Oxygen Concentration - - Weight - - Height 154.9 cm (5' 1 ) 06/29/2019 11:05 AM EDT Body Mass Index - - Plan of Treatment Health Maintenance Due Date Last Done Comments Hepatitis B Vaccines (1 of 3 - 3-dose series) 1971 Hepatitis C Screening 1971 COVID-19 Vaccine (#1) 1971 Depression Screening 1983 Preventative Health Evaluation 1989 DTap / Tdap / Td (1 - Tdap) 1990 Cervical Cancer Screening (P ap Smear) 1992 Colon Cancer Screening (Colonoscopy) 2016 Breast Cancer Screening (Mammogram) 2021 Shingrix-Zoster Vaccine (1 of 2) 2021 Influenza Vaccine (#1) 2025 Pneumococcal Vaccine Aged Out No long er eligible based on patient's age to complete this topic RSV Ped < 20 months Aged Out No longe r eligible based on patient's age to complete this topic Care Teams Mattress Inspector Relationship Specialty Start Date End Date Hannah Vidal MD [address] [place] [address] PCP - General Internal Medicine 05/27/19
== END 2025-06-13 13:07 | disposition home or self-care (01) ==
LOC: HO.HWS 12:34
PROVIDERS: PCP Internal Medicine; Visit Provider Advanced Practice Midwife
DX: Z01.419 Encounter for gynecological examination (general) (routine) without abnormal findings (principal)
CPT/HCPCS: 99396; 99459

== ENCOUNTER → 2025-06-13 12:34 | Outpatient (BNVA) | payer OTHER, SELFPAY | PROVIDERS: PCP Internal Medicine; Visit Provider Advanced Practice Midwife | DX: Z01.419 Encounter for gynecological examination (general) (routine) without abnormal findings (principal) | CPT/HCPCS: 99396 ==

== ENCOUNTER 2025-06-19 08:59 | Outpatient (REF) | payer OTHER, SELFPAY ==
--- OUTSIDE RECORDS SUMMARY | 2025-06-19 09:14 | XMS_ITS | Clinical Summary ---
Author Organization [facility] Address [address] [place] [address] Care Team Providers Care Shagger Name Role Phone Hannah Vidal MD Primary Care Provider [phone] Allergies Active Allergy Reactions Criticality Noted Date Comments [place] 06/29/2019 Sulfa Antibiotics 06/29/2019 Azithromycin 06/29/2019 Medications [...] age to complete this topic Care Teams Shagger Relationship Specialty Start Date End Date Hannah Vidal MD [address] [place] [address] PCP - General Internal Medicine 05/27/19
--- OUTSIDE RECORDS SUMMARY | 2025-06-19 09:14 | XMS_ITS | Clinical Summary ---
Author Organization [facility] Address [address] [place] [address] Care Team Providers Care Garbage Collector Supervisor Name Role Phone Hannah Vidal MD Primary Care Provider [phone] Surgical History Surgery Date Site/Laterality Comments APPENDECTOMY 1997 PROCEDURE: HISTORICAL APPENDECTOMY SECTION PROCEDURE: [place] DELIVERY ONLY TONSILLECTOMY 1988 PROCEDURE: HISTORICAL TONSILLECTOMY APPENDECTOMY PROCEDURE: [place] APPENDECTOMY CHOLECYSTECTOMY N/A PROCEDURE: HISTORICAL CHOLECYSTECTOMY TONSILLECTOMY N/A PROCEDURE: HISTORICAL TONSILLECTOMY NECK SURGERY 03/11/2007 N/A PROCEDURE: HISTORICAL NECK SURGERY; COMMENT: C4-5, C5-[address] Godinez/[place], [facility] OTHER SURGICAL HISTORY N/A PROCEDURE: HISTORY OTHER; COMMENT: Burnionectomy APPENDECTOMY N/A PROCEDURE: HISTORICAL APPENDECTOMY SECTION N/A PROCEDURE: HISTORICAL DELIVERY OTHER SURGICAL HISTORY N/A PROCEDURE: HISTORY OTHER; COMMENT: Gallbladder removal OVARIAN CYST REMOVAL PROCEDURE: [place] OVARIAN CYSTECTOMY UNI/BI NECK SURGERY 02/18/2009 PROCEDURE: HISTORICAL NECK SURGERY; COMMENT: C6-7 ACDF, removal of C4-6 hardware, Dr. Becker, [facility] NECK SURGERY 05/29/2006 PROCEDURE: HISTORICAL NECK SURGERY; COMMENT: C5-6 anterior cervical discectomy, Dr. Suazo, [facility] Medical History Medical History Date Comments [...] D deficiency DX:Vitamin D deficiency Bipolar disorder ([facility] V2 4, [facility] V28) DX:Bipolar disorder ([facility]); COMMENT: As well as PTSD, [...] season) 2024 Colorectal Cancer Screening: Colonoscopy 09/21/2024 HIV Screening 09/21/2024 Hepatitis C Screening 09/21/2024 Social Influencers of Health Screening 09/21/2024 Depression Screening 11/30/2024 Influenza Vaccine (#1) 2025 HIB Vaccines Aged [...] age to complete this topic Care Teams Garbage Collector Supervisor Relationship Specialty Start Date End Date Hannah Vidal MD [address] [facility] [place] [address] PCP - General 02/26/24
--- OUTSIDE RECORDS SUMMARY | 2025-06-19 09:14 | XMS_ITS | Patient Health Record ---
Author Organization [facility] Konrad Plummer Address [address] [facility] [place] [address] Care Team Providers Care Retail Attendant Name Role Phone Young BONILLA, Hannah Dominguez Primary Care Provider Un available Black, Steffanie Unavailable [phone] Allergies Allergen (clinical drug ingredient) Drug/Non Drug [...] W/U Status Risk Notes Problem Interstitial myositis ([id number]) Interstitial myositis of left foot (M60.172) Active confirmed Plan Of Treatment No Information Insurance Providers Payer Name Payer Address Payer Phone Subscriber Number Group Number Insured Name Patient Relationship to Insured Coverage Start Date Coverage End Date [facility] SCO Claims [address] [place] [phone] [id number] Cami Bales Self - patient is the insured Medical (General) History Medical History History ICD Code Anxiety asthma Depression Headaches/Migraines Chicken pox Joint implants/screws Bipolar disorder Sleep apnea Insomnia PTSD Surgical History Surgery Date(Month/Year) tonsillectomy appendectomy gall bladder removal neck surgery 3x bunionectomy section tubal ligation
[2025-06-19 10:07] LABS: MANUAL DIFF FLAG NO
[2025-06-19 10:24] LABS: Hematocrit 35.2 % (37.0-47.0); Hemoglobin 11.7 g/dl (12.0-16.0); Imm Gran Abs Auto 0.03 X10*3/uL (0.00-0.03); Imm Gran Pct Auto 0.4 % (0.0-0.4); Lymphocytes Absolute Auto 2.4 X10*3/uL (1.2-4.9); Mean Corpuscular HGB Conc 33.2 g/dl (31.0-35.0); Mean Corpuscular Hemoglobin 29.6 pg (27.0-33.0); Mean Corpuscular Volume 89.1 fL (80.0-98.0); NRBC Abs Auto 0.000 X10*3/uL (0.0-0.012); NRBC Pct Auto 0.0 /100WBC (0.0-0.2); Platelet Count 321 X10*3/uL (160-400); Red Blood Count 3.95 X10*6/uL (4.20-5.50); White Blood Count 7.5 X10*3/uL (4.8-10.8)
[2025-06-19 10:55] LABS: Alanine Aminotransferase 21 U/L (0-31); Albumin Level 4.0 g/dL (3.5-5.0); Alkaline Phosphatase 75 U/L (39-117); Anion Gap 9 (12-20); Aspartate Amino Transferase 16 U/L (5-31); Blood Urea Nitrogen 13 mg/dL (9-16); Calcium 8.6 mg/dL (8.4-10.2); Carbon Dioxide 29 mmol/L (22-29); Chloride 105 mmol/L (96-108); Cholesterol 190 mg/dL (<200); Estimated Glomerular Filt Rate > 60; HDL Cholesterol 50 mg/dL (>40); Potassium 4.3 mmol/L (3.3-5.1); Sodium 139 mmol/L (135-145); Total Protein 7.0 g/dL (6.5-8.0); Triglycerides 107 mg/dL (<150)
== END 2025-06-19 09:00 | disposition home or self-care (01) ==
LOC: HO.HMGCLDS 08:59
PROVIDERS: PCP Internal Medicine; Visit Provider Nurse Practitioner Psychiatric/Mental Health
DX: Z79.899 Other long term (current) drug therapy (principal)
CPT/HCPCS: 36415; 80053; 80061; 85025

== ENCOUNTER 2025-06-26 09:22 | Outpatient (REF) | payer OTHER, SELFPAY ==
--- OUTSIDE RECORDS SUMMARY | 2019-04-22 10:30 | XMS_ITS | Continuity of Care Document ---
Author Organization [facility] Address [address] [address] [place] [address] Phone Care Team Providers Care Brand Marketing Coordinator Name Role Phone Yenny ARCHIBALD, Jose Luis [...] Provider Providers Copied on Encounter [facility], [address] [address], [place], [place], [id number], tel:[phone] Alplaus The patient is here for an ocular health exam (chief complaint) Other specified postprocedural state Z98.890Examinat ion of eyes and vision with abnormal findings Z01.01Pinguecul a, right eye H11.151Presbyop ia H52.4 9 Yenny Amaya. [address] [place], [address], [place], [place], [id number], . tel:[phone] Referring Provider: Jose Luis Pagan, [address], [place], [address]. tel:[phone] Family History Family Member Type Diagnosis Age At Onset Mother Problem (finding) hypertension Uncle Problem (finding) Diabetes mellitus Grandparent Problem (finding) Cardiovascular disease Grandparent Problem (finding) cataract Payers Payer name Insurance type Covered green party ID Genie ross(van Khanna Vision CI [id number] Social History Type Description Quantity Date Captured [...]
--- OUTSIDE RECORDS SUMMARY | 2025-06-26 10:10 | XMS_ITS | Patient Health Record ---
Author Organization [facility] Konrad Plummer Address [address] [facility] [place] [address] Care Team Providers Care Brand Specialist Name Role Phone Young BONILLA, Hannah Dominguez Primary Care Provider Un available Black, Steffanie Unavailable [phone] Allergies Allergen (clinical drug ingredient) Drug/Non Drug [...] W/U Status Risk Notes Problem Interstitial myositis ([id number]) Interstitial myositis of left foot (M60.172) Active confirmed Plan Of Treatment No Information Insurance Providers Payer Name Payer Address Payer Phone Subscriber Number Group Number Insured Name Patient Relationship to Insured Coverage Start Date Coverage End Date [facility] SCO Claims [address] [place] [phone] [id number] Cami Bales Self - patient is the insured Medical (General) History Medical History History ICD Code Anxiety asthma Depression Headaches/Migraines Chicken pox Joint implants/screws Bipolar disorder Sleep apnea Insomnia PTSD Surgical History Surgery Date(Month/Year) tonsillectomy appendectomy gall bladder removal neck surgery 3x bunionectomy section tubal ligation
--- OUTSIDE RECORDS SUMMARY | 2025-06-26 10:10 | XMS_ITS | Clinical Summary ---
Author Organization [facility] Address [address] [place] [address] Care Team Providers Care Seal Delivery Vehicle Team Technician Name Role Phone Hannah Vidal MD Primary Care Provider [phone] Allergies Active Allergy Reactions Criticality Noted Date Comments [place] 06/29/2019 Sulfa Antibiotics 06/29/2019 Azithromycin 06/29/2019 Medications [...] age to complete this topic Care Teams Seal Delivery Vehicle Team Technician Relationship Specialty Start Date End Date Hannah Vidal MD [address] [place] [address] PCP - General Internal Medicine 05/27/19
--- OUTSIDE RECORDS SUMMARY | 2025-06-26 10:10 | XMS_ITS | Clinical Summary ---
Author Organization [facility] Address [address] [place] [address] Care Team Providers Care Buggy Ladle Tender Name Role Phone Hannah Vidal MD Primary Care Provider Surgical History Surgery Date Site/Laterality Comments APPENDECTOMY 1997 PROCEDURE: HISTORICAL APPENDECTOMY SECTION PROCEDURE: OR DELIVERY ONLY TONSILLECTOMY 1988 PROCEDURE: HISTORICAL TONSILLECTOMY APPENDECTOMY PROCEDURE: OR APPENDECTOMY CHOLECYSTECTOMY N/A PROCEDURE: HISTORICAL CHOLECYSTECTOMY TONSILLECTOMY N/A PROCEDURE: HISTORICAL TONSILLECTOMY NECK SURGERY 03/11/2007 N/A PROCEDURE: HISTORICAL NECK SURGERY; COMMENT: C4-5, C5-[address] Godinez/[place], [facility] OTHER SURGICAL HISTORY N/A PROCEDURE: HISTORY OTHER; COMMENT: Burnionectomy APPENDECTOMY N/A PROCEDURE: HISTORICAL APPENDECTOMY SECTION N/A PROCEDURE: HISTORICAL DELIVERY OTHER SURGICAL HISTORY N/A PROCEDURE: HISTORY OTHER; COMMENT: Gallbladder removal OVARIAN CYST REMOVAL PROCEDURE: OR OVARIAN CYSTECTOMY UNI/BI NECK SURGERY 02/18/2009 PROCEDURE: HISTORICAL NECK SURGERY; COMMENT: C6-7 ACDF, removal of C4-6 hardware, Dr. Becker, [facility] NECK SURGERY 05/29/2006 PROCEDURE: HISTORICAL NECK SURGERY; COMMENT: C5-6 anterior cervical discectomy, Dr. Suazo, [facility] Medical History Medical History Date Comments Bipolar [...] D deficiency DX:Vitamin D deficiency Bipolar disorder ([facility] V2 4, [facility] V28) DX:Bipolar disorder ([facility]); COMMENT: As well as PTSD, anxiety [...] age to complete this topic Care Teams Buggy Ladle Tender Relationship Specialty Start Date End Date Hannah Vidal MD [address] [place] [address] PCP - General 02/26/24
[2025-06-26 13:13] LABS: Appearance Urine Clear; Glucose Urine UA Negative (Negative); PH 6.0 (5.0-9.0); Specific Gravity - Urine <= 1.005 (1.005-1.025)
== END 2025-06-26 09:23 | disposition home or self-care (01) ==
LOC: HO.HMGCLDS 09:22
PROVIDERS: PCP Internal Medicine; Visit Provider Nurse Practitioner Psychiatric/Mental Health
DX: Z79.899 Other long term (current) drug therapy (principal)
CPT/HCPCS: 81003

== ENCOUNTER 2025-07-26 10:38 | Outpatient (AMB) | payer OTHER, SELFPAY ==
--- OUTSIDE RECORDS SUMMARY | 2019-04-22 10:30 | XMS_ITS | Continuity of Care Document ---
Author Organization [facility] Address [address] [address] [place] [address] Phone Care Team Providers Care Bedspread Folder Name Role Phone Yenny ARCHIBALD, Jose Luis Unavailable Unavailab le Allergies, Adverse Reactions, Alerts Substance Reaction Status Criticality No Known Allergies Active No Inform ation Medications Medication Instructions Dosage Effective Dates (start - stop) Status Comments Adderall XR 30 mg capsule,extended release take 1 capsule by oral route every day in the morning upon awakening 30 MG - Active Procedures Procedure Date Comprehensive eye exam, new patient Determination of refractive state Advance Directives Directive Yes / No Effective Date File Name No Information Encounters Encounter Description Practice Location Reason(s) For Visit Diagnoses Date Provider Providers Copied on Encounter [facility], [address] [address], [place], [place], [id number], tel:[phone] Gary The patient is here for an ocular health exam (chief complaint) Other specified postprocedural state Z98.890Examinat ion of eyes and vision with abnormal findings Z01.01Pinguecul a, right eye H11.151Presbyop ia H52.4 9 Yenny Amaya. [address] [place], [address], [place], [place], [id number], . tel:[phone] Referring Provider: Jose Luis Pagan, [address], [place], [address]. tel:[phone] Family History Family Member Type Diagnosis Age At Onset Mother Problem (finding) hypertension Uncle Problem (finding) Diabetes mellitus Grandparent Problem (finding) Cardiovascular disease Grandparent Problem (finding) cataract Payers Payer name Insurance type Covered democrat ID Genie ross(van Khanna [employer] CI [id number] Social History Type Description Quantity Date Captured Comments Alcohol Use Details 1 glass daily Caffeine Use Details coffee 1 cup per day Tobacco Use Status Never smoked tobacco 2018 Smoking Status Never smoker Non-Smoking Tobacco Use Details : No Details Available : No Details Available Sex Female Chief Complaint And Reason For Visit From encounter dated '04/22/2019 14:30'. The patient is here for an ocular health exam (chief complaint) Reason For Referral Reason For Referral No Information History Of Present Illness Encounter Date Complaint History Of Prese nt Illness The patient is here for an ocular health exam The patient is here for an ocular health exam due to decreased vision when reading (small print.) Onset 6 months ago, worse at night. Patient states was prescribed reading glasses don't help much. Patient believes distance vision doing well without complaint. Patient uses artificial tears on occasion.Patient last eye exam 2-3 years ago. Functional Status Date Functional Assessmen t No Information Instructions Date Instruction Additional Infor kari - Explained in kobe shannon, diagnosis with patient. New glasses prescription given today. Related to Presbyopia H52.4 - The patient was co unseled in detail on the diagnosis and understands. Return to clinic sooner then planned if symptoms worsen or do not improve. Patient instructed to start:- Artificial tears 4x/day (Recommend: Systane or Refresh) Related to Pinguecula, right eye H11.151 - Patient educated o n findings of today's exam. Patient educated on spec Rx. New spec Rx given at today's exam. Related to Examination of eyes and vision with abnormal findings Z01.01 - No treatment is re quired at this time. Will continue to observe condition and or symptoms. Related to Other specified postprocedural state Z98.890 Assessments Type Assessment Date assessment Other specified postprocedural s ramirez Z98.890 assessment Examination of eyes and vision w ith abnormal findings Z01.01 assessment Pinguecula, right eye H11.151 Ma assessment Presbyopia H52.4 Patient Care Teams Name Effective Dates (start - stop) Status Members No Information
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
[2025-07-26 11:23] VITALS: BP 102/64; PULSE 76; RESP 16; TEMP 36.8; O2SAT 98; BMI 27.0
--- OUTSIDE RECORDS SUMMARY | 2025-07-26 11:29 | XMS_ITS | Clinical Summary ---
Author Organization [facility] Address [address] [place] [address] Care Team Providers Care Race And Sports Book Writer Name Role Phone Hannah Vidal MD Primary Care Provider [phone] Surgical History Surgery Date Site/Laterality Comments APPENDECTOMY 1997 PROCEDURE: HISTORICAL APPENDECTOMY SECTION PROCEDURE: ME DELIVERY ONLY TONSILLECTOMY 1988 PROCEDURE: HISTORICAL TONSILLECTOMY APPENDECTOMY PROCEDURE: ME APPENDECTOMY CHOLECYSTECTOMY N/A PROCEDURE: HISTORICAL CHOLECYSTECTOMY TONSILLECTOMY N/A PROCEDURE: HISTORICAL TONSILLECTOMY NECK SURGERY 03/11/2007 N/A PROCEDURE: HISTORICAL NECK SURGERY; COMMENT: C4-5, C5-[address] Godinez/[place], [facility] OTHER SURGICAL HISTORY N/A PROCEDURE: HISTORY OTHER; COMMENT: Burnionectomy APPENDECTOMY N/A PROCEDURE: HISTORICAL APPENDECTOMY SECTION N/A PROCEDURE: HISTORICAL DELIVERY OTHER SURGICAL HISTORY N/A PROCEDURE: HISTORY OTHER; COMMENT: Gallbladder removal OVARIAN CYST REMOVAL PROCEDURE: ME OVARIAN CYSTECTOMY UNI/BI NECK SURGERY 02/18/2009 PROCEDURE: HISTORICAL NECK SURGERY; COMMENT: C6-7 ACDF, removal of C4-6 hardware, Dr. Becker, [facility] NECK SURGERY 05/29/2006 PROCEDURE: HISTORICAL NECK SURGERY; COMMENT: C5-6 anterior cervical discectomy, Dr. Suazo, [facility] Medical History Medical History Date Comments [...] D deficiency DX:Vitamin D deficiency Bipolar disorder ([facility] V2 4, [facility] V28) DX:Bipolar disorder ([facility]); COMMENT: As well as PTSD, anxiety disorder [...] age to complete this topic Care Teams Race And Sports Book Writer Relationship Specialty Start Date End Date Hannah Vidal MD [address] [place] [address] PCP - General 02/26/24
--- OUTSIDE RECORDS SUMMARY | 2025-07-26 11:29 | XMS_ITS | Patient Health Record ---
Author Organization [facility] Konrad Plummer Address [address] [place] [address] Care Team Providers Care Supervisor Laboratory Animal Facility Name Role Phone Young BONILLA, Hannah Dominguez Primary Care Provider Un available Black, Steffanie Unavailable [phone] Allergies Allergen (clinical drug ingredient) Drug/Non Drug [...] W/U Status Risk Notes Problem Interstitial myositis of left foot (M60.172) Active confirmed Plan Of Treatment No Information Insurance Providers Payer Name Payer Address Payer Phone Subscriber Number Group Number Insured Name Patient Relationship to Insured Coverage Start Date Coverage End Date [facility] [employer] Claims [address] [place] [phone] [id number] Cami Bales Self - patient is the insured Medical (General) History Medical History History ICD Code Anxiety asthma Depression Headaches/Migraines Chicken pox Joint implants/screws Bipolar disorder Sleep apnea Insomnia PTSD Surgical History Surgery Date(Month/Year) tonsillectomy appendectomy gall bladder removal neck surgery 3x bunionectomy section tubal ligation
--- OUTSIDE RECORDS SUMMARY | 2025-07-26 11:29 | XMS_ITS | Clinical Summary ---
Author Organization [facility] Address [address] [place] [address] Care Team Providers Care Contracts Administrator Name Role Phone Hannah Vidal MD Primary Care Provider [phone] Allergies Active Allergy Reactions Criticality Noted Date Comments [place] 06/29/2019 Sulfa Antibiotics 06/29/2019 Azithromycin 06/29/2019 Medications [...] age to complete this topic Care Teams Contracts Administrator Relationship Specialty Start Date End Date Hannah Vidal MD [address] [place] [address] PCP - General Internal Medicine 05/27/19
== END 2025-07-26 12:10 | disposition home or self-care (01) ==
LOC: HO.HMCC 10:39
PROVIDERS: PCP Internal Medicine; Visit Provider Internal Medicine
DX: Z00.01 Encounter for general adult medical examination with abnormal findings (principal); R73.03 Prediabetes; E78.5 Hyperlipidemia, unspecified; F31.9 Bipolar disorder, unspecified; R25.2 Cramp and spasm

== ENCOUNTER → 2025-07-26 10:38 | Outpatient (BNVA) | payer OTHER, SELFPAY | PROVIDERS: PCP Internal Medicine; Visit Provider Internal Medicine | DX: Z00.01 Encounter for general adult medical examination with abnormal findings (principal); M25.50 Pain in unspecified joint; E78.5 Hyperlipidemia, unspecified; F31.9 Bipolar disorder, unspecified; R73.03 Prediabetes; G47.33 Obstructive sleep apnea (adult) (pediatric); R25.2 Cramp and spasm; E61.2 Magnesium deficiency; E55.9 Vitamin D deficiency, unspecified; B00.9 Herpesviral infection, unspecified; Z78.0 Asymptomatic menopausal state | CPT/HCPCS: 96127; 99396 ==